=== PATIENT | male | born 1945 | race Caucasian/White ===

== ENCOUNTER 2017-11-25 20:59 | Inpatient (IN) | payer MEDICARE, BC ==
[~2017-11-25] VITALS: Ht 167.6 cm; Wt 98.9 kg
--- NOTE | 2017-11-25 21:50 | NUR ---
MD VENTURA AT BEDSIDE FOR MSE
[2017-11-25] MEDS ORDERED: IOHEXOL 350 100 ML INFUS..BTL ONE (22:16)
[2017-11-25 22:29] LABS: BASOPHILS # (AUTO) 0.1 K/uL (0.0-8.0); BASOPHILS % (AUTO) 0.6 % (0.0-2.0); EOSINOPHILS # (AUTO) 0.2 K/uL (0.0-0.7); EOSINOPHILS % (AUTO) 1.8 % (0.0-7.0); HEMOGLOBIN 11.6 g/dL (12.5-16.3); LYMPHOCYTES % (AUTO) 24.4 % (20.5-51.5); MEAN CORPUSCULAR HEMOGLOBIN 20.2 uug (23.8-33.4); MEAN CORPUSCULAR HGB CONC 31 g/dL (32.5-36.3); MEAN CORPUSCULAR VOLUME 64.5 fL (73.0-96.2); MONOCYTES % (AUTO) 8.4 % (0.0-11.0); NEUTROPHILS % (AUTO) 64.8 % (38.5-71.5); PLATELET COUNT (AUTO) 150 K/uL (152-348); RED BLOOD CELL COUNT(AUTO) 5.73 MIL/uL (4.06-5.63); WHITE BLOOD COUNT (AUTO) 12.3 K/uL (3.6-10.2)
--- NOTE | 2017-11-25 22:35 | NUR ---
PT IN ROUTE TO CT IN [facility] WITH TRANSPORTER
[2017-11-25 22:46] LABS: CARBON DIOXIDE 28 mmol/L (21-32); CHLORIDE 103 mmol/L (98-107); CREATININE 1.1 mg/dL (0.6-1.3); GLUCOSE 94 mg/dL (74-106); POTASSIUM 4.5 mmol/L (3.5-5.1); UREA NITROGEN, BLOOD 13 mg/dL (7-18)
[2017-11-25 22:53] LABS: ALANINE AMINOTRANSFERASE 21 U/L (16-63); ALKALINE PHOSPHATASE 55 U/L (50-136); ASPARTATE AMINOTRANSFERASE 11 U/L (15-37); BILIRUBIN,TOTAL 0.8 mg/dL (0.2-1.0); CREATINE KINASE, TOTAL 66 U/L (39-308); LIPASE 152 U/L (73-393); TOTAL PROTEIN, SERUM 7.3 g/dL (6.4-8.2)
--- NOTE | 2017-11-25 23:12 | NUR ---
PT RETURNS FROM CT IN [facility] WITH TRANSPORTER
[2017-11-25 23:20] LABS: EOSINOPHILS % (MANUAL) 1 % (0-8); LYMPHOCYTES % (MANUAL) 17 % (20-40); METAMYELOCYTES % 5 % (0-1); MONOCYTES % (MANUAL) 3 % (2-10); MYELOCYTES % 2 % (0-0); NEUTROPHILS % (MANUAL) 66 % (42-75)
[2017-11-25 23:42] LABS: *BILIRUBIN,URIN NEGATIVE (NEGATIVE); *BLOOD, URINE NEGATIVE (NEGATIVE); *CLARITY,URINE CLEAR (CLEAR); *COLOR,URINE YELLOW (YELLOW); *KETONES,URINE NEGATIVE (NEGATIVE); *PROTEIN,URINE NEGATIVE (NEGATIVE); *UROBILINOGEN,URINE 0.2 E.U./dl (NORMAL); LEUKOCYTE ESTERASE ,URINE NEGATIVE (NEGATIVE); NITRITE, URINE NEGATIVE (NEGATIVE); PH,URINE 6.5 (5.0-8.0); UGLUCOSE TRACE (NEGATIVE)
[2017-11-25] MEDS ORDERED: METRONIDAZOLE 500 MG/NS 100 ML PIGGYBACK IV ONE (23:44)
[2017-11-25] MEDS ORDERED: CIPROFLOXACIN IV 400 MG in PREMIXED 1 EACH IV SCH (23:44)
[2017-11-25] MEDS ORDERED: IV NS 1000 ML 1,000 ML IV ONE (23:45)
[2017-11-25 23:54] LABS: BACTERIA,URINE NONE SEEN /HPF (NONE SEEN); RBC,URINE 0-3 /HPF (0-3); SQUAMOUS EPITHELIAL CELL,UR FEW /HPF (NONE SEEN); WBC,URINE NONE SEEN /HPF (0-3)
[2017-11-26] MEDS ORDERED: METRONIDAZOLE 500 MG/NS 100ML 100 ML IV ONE ×2 (00:02→06:00)
--- NOTE | 2017-11-26 00:05 | NUR ---
PT ABLE TO AMBULATE FROM BED TO RESTROOM AND BACK WITH STEADY GAIT W/O ASSISTANCE.
[2017-11-26] MEDS ORDERED: ONDANSETRON 4 MG/2 ML VIAL IV PRN (00:30)
[2017-11-26] MEDS ORDERED: MAGNESIUM HYDROXIDE 30 ML LIQUID UDC PO PRN (00:30)
[2017-11-26] MEDS ORDERED: ACETAMINOPHEN 325 MG TABLET PO PRN (00:30)
[2017-11-26] MEDS ORDERED: Z GUARD REMEDY PASTE 57 GM TUBE TOP PRN (00:30)
[2017-11-26] MEDS ORDERED: MORPHINE SULFATE 2 MG/1 ML DISP.SYRIN IV PRN (00:30)
--- NOTE | 2017-11-26 01:05 | NUR ---
REPORT GIVEN TO TELEMETRY NURSE, MEGHNA VARMA
--- NOTE | 2017-11-26 01:55 | NUR ---
ADMITTED A 72 YEARS OLD MALE WITH DIAGNOSIS OF DIVERTICULITIS. AAOX4. DENIES ANY PAIN OR SOB AT THIS TIME. NSR ON TELE AT 78/MIN. IV SITE ON RIGHT HAND INTACT AND PATENT. CIPRO IV ABX RUNNING AT THIS TIME. ROUTINE ADMISSION CARE DONE. PLAN OF CARE INITIATED. SAFETY MEASURE INITIATED AND CALL HU WITHIN REACH.
[2017-11-26 02:00] VITALS: BP 110/67
--- NOTE | 2017-11-26 02:00 | NUR ---
Pt. admitted to TELEMETRY, under care of Dr. MONTERO Belongs List REFUSED BY PT
[2017-11-26] MEDS: IV D5 1/2 NS 1000 ML 1,000 ML IV PRN (02:38)
[2017-11-26] MEDS: HYDROCODONE/APAP 5-325MG TABLET PO PRN ×3 (04:43→15:24)
[2017-11-26] MEDS: METRONIDAZOLE 500 MG/NS 100ML 500 MG in PREMIXED 1 EACH IV SCH ×3 (06:04→21:20)
--- NOTE | 2017-11-26 06:13 | NUR ---
AAOX4. IN NO ACUTE DISTRESS. NSR ON TELE WITH PERIODS OF ATRIAL ECTOPY. IV SITE ON RIGHT HAND INTACT AND PATENT. NO ADVERSE REACTION NOTED FROM IV ABX. SAFETY MEASURE MAINTAINED AND CALL HU WITHIN REACH.
[2017-11-26] MEDS ORDERED: MORPHINE SULFATE 4 MG/1 ML DISP.SYRIN IV PRN (07:45)
[2017-11-26] MEDS: LACTOBACILLUS RHAMNOSUS GG 1 EACH CAPSULE PO SCH ×2 (10:26→21:19)
[2017-11-26 11:46] VITALS: BP 116/71
[2017-11-26] MEDS ORDERED: CIPROFLOXACIN IV 400 MG in PREMIXED 1 EACH IV SCH ×4 (12:00)
[2017-11-26 12:02] LABS: BASOPHILS % (AUTO) 0.4 % (0.0-2.0); EOSINOPHILS # (AUTO) 0.2 K/uL (0.0-0.7); EOSINOPHILS % (AUTO) 1.8 % (0.0-7.0); HEMATOCRIT 36.6 % (36.7-47.1); HEMOGLOBIN 11.5 g/dL (12.5-16.3); LYMPHOCYTES # (AUTO) 2.6 K/uL (20.0-40.0); MEAN CORPUSCULAR HEMOGLOBIN 20.4 uug (23.8-33.4); MEAN CORPUSCULAR HGB CONC 32 g/dL (32.5-36.3); MEAN CORPUSCULAR VOLUME 64.7 fL (73.0-96.2); MONOCYTES # (AUTO) 0.9 K/uL (2.0-10.0); MONOCYTES % (AUTO) 8.6 % (0.0-11.0); NEUTROPHILS % (AUTO) 65.2 % (38.5-71.5); PLATELET COUNT (AUTO) 142 K/uL (152-348); RED BLOOD CELL COUNT(AUTO) 5.66 MIL/uL (4.06-5.63); WHITE BLOOD COUNT (AUTO) 10.7 K/uL (3.6-10.2)
[2017-11-26 12:22] LABS: CARBON DIOXIDE 27 mmol/L (21-32); CHLORIDE 106 mmol/L (98-107); CREATININE 1.1 mg/dL (0.6-1.3); GLUCOSE 86 mg/dL (74-106); POTASSIUM 4.6 mmol/L (3.5-5.1); UREA NITROGEN, BLOOD 9 mg/dL (7-18)
[2017-11-26] MEDS: LEVOFLOXACIN 500 MG/D5W 500 MG in PREMIXED 1 EACH IV SCH (12:25)
[2017-11-26 13:50] LABS: BAND % (MANUAL) 3 % (0-10); EOSINOPHILS % (MANUAL) 2 % (0-8); LYMPHOCYTES % (MANUAL) 26 % (20-40); METAMYELOCYTES % 3 % (0-1); MONOCYTES % (MANUAL) 7 % (2-10); NEUTROPHILS % (MANUAL) 59 % (42-75)
[2017-11-26 15:33] VITALS: BP 130/76
--- NOTE | 2017-11-26 19:20 | NUR ---
RECEIVED SHIFT REPORT FROM MEGHNA VARMA. PT IN BED, NO COMPLAINTS AT THIS TIME. PT REFUSES TELE MONITORING.
[2017-11-26 20:00] VITALS: BP 114/66
[2017-11-27 04:00] VITALS: BP 124/73
[2017-11-27] MEDS: HYDROCODONE/APAP 5-325MG TABLET PO PRN (04:10)
[2017-11-27] MEDS: METRONIDAZOLE 500 MG/NS 100ML 500 MG in PREMIXED 1 EACH IV SCH ×3 (05:30→21:07)
--- NOTE | 2017-11-27 05:50 | NUR ---
Patient slept t/o shift. Patient continues to refuse TELE monitor despite detail explanation on how important it is to have it on. Patient remains A/O x 4. No C/O pain or SOB at the moment. IV fluids infusing on the right hand. Vital signs stable. Afebrile. Room is left clutter free. Bed in low and locked position. All meds given as ordered. All needs met.
[2017-11-27 06:32] LABS: IRON, SERUM 27 ug/dL (50-175)
[2017-11-27 06:45] LABS: CARBON DIOXIDE 26 mmol/L (21-32); CHLORIDE 105 mmol/L (98-107); CREATININE 1.1 mg/dL (0.6-1.3); FERRITIN 181 ng/mL (26-388); GLUCOSE 116 mg/dL (74-106); MAGNESIUM 1.7 mg/dL (1.8-2.4); PHOSPHOROUS 3.1 mg/dL (2.5-4.9); POTASSIUM 4.2 mmol/L (3.5-5.1); UREA NITROGEN, BLOOD 8 mg/dL (7-18)
--- NOTE | 2017-11-27 06:50 | NUR ---
PT REQUESTS TO BE PUT BACK ON TELE MONITORING. PT PLACED ON TELE MONITOR. NSR ON TELE.
--- NOTE | 2017-11-27 07:37 | NUR ---
patient awake/alert at this time. no s/s of distress. stable condition. receiving blood draw. complains of abdominal pain 3/10 on pain scale and tolerable without pain medication/management. ivf running at this time. ambulatory without assistance. will continue to monitor throughout shift.
[2017-11-27 07:51] LABS: BASOPHILS # (AUTO) 0.1 K/uL (0.0-8.0); BASOPHILS % (AUTO) 0.8 % (0.0-2.0); EOSINOPHILS # (AUTO) 0.2 K/uL (0.0-0.7); EOSINOPHILS % (AUTO) 1.9 % (0.0-7.0); HEMATOCRIT 35.5 % (36.7-47.1); HEMOGLOBIN 11.4 g/dL (12.5-16.3); LYMPHOCYTES # (AUTO) 2.3 K/uL (20.0-40.0); LYMPHOCYTES % (AUTO) 22.9 % (20.5-51.5); MEAN CORPUSCULAR HEMOGLOBIN 20.5 uug (23.8-33.4); MEAN CORPUSCULAR HGB CONC 32 g/dL (32.5-36.3); MEAN CORPUSCULAR VOLUME 63.8 fL (73.0-96.2); MONOCYTES # (AUTO) 0.7 K/uL (2.0-10.0); MONOCYTES % (AUTO) 7.2 % (0.0-11.0); NEUTROPHILS # (AUTO) 6.6 K/uL (1.8-8.9); NEUTROPHILS % (AUTO) 67.2 % (38.5-71.5); PLATELET COUNT (AUTO) 134 K/uL (152-348); RED BLOOD CELL COUNT(AUTO) 5.56 MIL/uL (4.06-5.63); WHITE BLOOD COUNT (AUTO) 9.9 K/uL (3.6-10.2)
[2017-11-27 08:07] LABS: EOSINOPHILS % (MANUAL) 2 % (0-8); LYMPHOCYTES % (MANUAL) 22 % (20-40); MONOCYTES % (MANUAL) 8 % (2-10)
[2017-11-27 08:12] LABS: NEUTROPHILS % (MANUAL) 68 % (42-75)
[2017-11-27 08:45] VITALS: BP 108/62
[2017-11-27] MEDS: LACTOBACILLUS RHAMNOSUS GG 1 EACH CAPSULE PO SCH ×2 (08:54→21:07)
[2017-11-27] MEDS ORDERED: MAGNESIUM OXIDE 400 MG TABLET PO ONE (10:30)
--- NOTE | 2017-11-27 11:30 | NUR ---
ORDERED TO HAVE DIET ADVANCED TO SOFT DIET.
[2017-11-27 11:50] VITALS: BP 131/74
[2017-11-27] MEDS: LEVOFLOXACIN 500 MG/D5W 500 MG in PREMIXED 1 EACH IV SCH (12:32)
[2017-11-27] MEDS ORDERED: ROSU10TA PO (14:33)
[2017-11-27] MEDS ORDERED: TAMS0.4C34 PO (14:33)
[2017-11-27] MEDS ORDERED: GLIP5TAB26 PO (14:33)
[2017-11-27] MEDS ORDERED: LOSA50TA21 PO (14:33)
--- NOTE | 2017-11-27 15:00 | NUR ---
home medications brought in by family. Medications sorted through. Patient's primary pharmacy called to confirm medications patient is currently on. Confirmed medications by patient's primary pharmacy are entered into medication reconciliation. all home medications brought down to pharmacy. MD notified of medications entered into medication reconciliation.
--- NOTE | 2017-11-27 15:27 | NUR ---
no complaints of abdominal pain thus far through shift. no complaints of pain following advancement of diet to soft diet. scheduled antibiotics administered. vital signs stable.
[2017-11-27] MEDS: IV D5 1/2 NS 1000 ML 1,000 ML IV PRN (15:55)
[2017-11-27 16:05] VITALS: BP 119/60
--- NOTE | 2017-11-27 18:27 | NUR ---
awake/alert at this time. no s/s of distress. sitting in chair at bedside with daughter also at bedside. vital signs stable. telemetry discontinued by fish bait picker. no complaints of abdominal pain verbalized by patient throughout shift. call light within reach. comfort/safety provided.
--- NOTE | 2017-11-27 19:30 | NUR ---
Patient alert awake oriented in no acute distress. Sitting up in chair. No complaints of abdominal pain at this time. Denies shortness of breathe and discomfort. Maintaining IV fluids D51/2ns at 75cc/hr. IV site intact. Able to make needs know. Aware of plan of care. Reminded patient to ask for assistance when needed. Call light within reach. Will continue to monitor.
[2017-11-27 20:00] VITALS: BP 106/56
[2017-11-27] MEDS ORDERED: METFORMIN XR 500 MG TAB.SR.24H PO SCH (22:00)
[2017-11-27] MEDS: TAMSULOSIN HCL 0.4 MG CAP.SR.24H PO SCH (22:01)
[2017-11-27] MEDS: ATORVASTATIN 40 MG TABLET PO SCH (22:01)
--- NOTE | 2017-11-27 23:34 | NUR ---
Patient blood glucose level checked and noted to be 136mg/dl. Patient metformin held for the night. MD aware. Auger Press Operator aware. Patient informed of why medication was held and verbalized understanding. Will continue to monitor and endorse.
--- NOTE | 2017-11-28 01:00 | NUR ---
Patient resting in bed. No s/s of hyper or hypoglycemia. No adverse reaction noted to antibiotic therapy. IV site intact patent. No s/s of infiltration. Continue IV hydration. Will continue to monitor.
--- NOTE | 2017-11-28 03:27 | NUR ---
Patient continues to remain in bed. No s/s of distress. Will continue to monitor.
[2017-11-28 03:48] VITALS: BP 124/66
[2017-11-28] MEDS: METRONIDAZOLE 500 MG/NS 100ML 500 MG in PREMIXED 1 EACH IV SCH ×3 (05:53→21:37)
[2017-11-28] MEDS: IV D5 1/2 NS 1000 ML 1,000 ML IV PRN ×2 (05:57→21:37)
--- NOTE | 2017-11-28 06:18 | NUR ---
Patient awake, labs drawn. Patient requested to have blood glucose level checked. BGL 137mg/dl. Patient in no apparent distress. Patient used restroom and safely ambulated back to bed. Side rails up. Call light in reach. Will continue to follow up.
[2017-11-28 06:41] LABS: CARBON DIOXIDE 24 mmol/L (21-32); CHLORIDE 106 mmol/L (98-107); GLUCOSE 137 mg/dL (74-106); MAGNESIUM 1.8 mg/dL (1.8-2.4); PHOSPHOROUS 3.2 mg/dL (2.5-4.9); POTASSIUM 3.7 mmol/L (3.5-5.1); UREA NITROGEN, BLOOD 9 mg/dL (7-18)
[2017-11-28 06:52] LABS: BASOPHILS % (AUTO) 0.5 % (0.0-2.0); EOSINOPHILS # (AUTO) 0.2 K/uL (0.0-0.7); EOSINOPHILS % (AUTO) 1.9 % (0.0-7.0); HEMATOCRIT 35.8 % (36.7-47.1); HEMOGLOBIN 11.4 g/dL (12.5-16.3); LYMPHOCYTES # (AUTO) 2.1 K/uL (20.0-40.0); LYMPHOCYTES % (AUTO) 22.8 % (20.5-51.5); MEAN CORPUSCULAR HEMOGLOBIN 20.5 uug (23.8-33.4); MEAN CORPUSCULAR HGB CONC 32 g/dL (32.5-36.3); MEAN CORPUSCULAR VOLUME 64.3 fL (73.0-96.2); MONOCYTES # (AUTO) 0.7 K/uL (2.0-10.0); MONOCYTES % (AUTO) 7.4 % (0.0-11.0); NEUTROPHILS # (AUTO) 6.1 K/uL (1.8-8.9); NEUTROPHILS % (AUTO) 67.4 % (38.5-71.5); PLATELET COUNT (AUTO) 116 K/uL (152-348); RED BLOOD CELL COUNT(AUTO) 5.57 MIL/uL (4.06-5.63); WHITE BLOOD COUNT (AUTO) 9.1 K/uL (3.6-10.2)
--- NOTE | 2017-11-28 07:34 | NUR ---
AWAKE ALERT AND ORIENTED X3 NO SS OF ACUTE PAIN OR DISTRESS NO ACTIVE HEMOPTYSIS. CONTINUE CLOSE MONITORING, LABS ORDERED. Addendum: 11/28/17 at 0739 by LAINE HAYES RN ERROR
--- NOTE | 2017-11-28 07:40 | NUR ---
AWAKE ALERT AND ORIENTED X3 NO ACUTE ABDOMINAL PAIN, NO N/V
[2017-11-28] MEDS: LACTOBACILLUS RHAMNOSUS GG 1 EACH CAPSULE PO SCH ×2 (08:21→20:14)
[2017-11-28] MEDS: TAMSULOSIN HCL 0.4 MG CAP.SR.24H PO SCH (08:21)
[2017-11-28] MEDS: glipiZIDE XL 5 MG TABCR PO SCH (08:22)
[2017-11-28] MEDS: LOSARTAN POTASSIUM 50 MG TABLET PO SCH (08:22)
[2017-11-28 09:20] LABS: BAND % (MANUAL) 1 % (0-10); BASOPHILS % (MANUAL) 2 % (0-2); EOSINOPHILS % (MANUAL) 1 % (0-8); LYMPHOCYTES % (MANUAL) 28 % (20-40); MONOCYTES % (MANUAL) 7 % (2-10); NEUTROPHILS % (MANUAL) 61 % (42-75)
[2017-11-28] MEDS ORDERED: INSULIN REGULAR, HUMAN 300 UNIT/3 ML VIAL SQ PRN (10:15)
[2017-11-28] MEDS ORDERED: DEXTROSE 50% 50 ML DISP.SYRIN IV PRN (10:15)
[2017-11-28 10:32] LABS: THYROID STIMULATING HORMONE 3.126 mIU/mL (0.358-3.740)
[2017-11-28 11:40] VITALS: BP 125/76
--- NOTE | 2017-11-28 12:00 | NUR ---
NO C/O PAIN OR SOB, AFEBRILE.
[2017-11-28] MEDS: LEVOFLOXACIN 500 MG/D5W 500 MG in PREMIXED 1 EACH IV SCH (12:13)
[2017-11-28] MEDS: BLOOD SUGAR DIAGNOSTIC 1 EACH STRIP VI SCH ×3 (12:14→21:37)
[2017-11-28] MEDS: INVOKANA 300 MG PO SCH (12:14)
[2017-11-28] MEDS: METFORMIN XR 500 MG TAB.SR.24H PO SCH ×2 (12:14→16:42)
[2017-11-28] MEDS ORDERED: METF-495 PO (14:33)
[2017-11-28] MEDS ORDERED: CANA300T PO (14:33)
[2017-11-28] MEDS ORDERED: LIRA0.6P2 SUBCUT (14:33)
[2017-11-28 16:00] VITALS: BP 109/58
--- NOTE | 2017-11-28 17:52 | NUR ---
CONTINUE IV ANTIBIOTIC ORDERED. DENIES PAIN, AMBULATES AROUND THE HALLWAY NO DIZZINESS NOTED. AFEBRILE. PLAN DC IN AM PER HOSPITALIST
--- NOTE | 2017-11-28 19:10 | NUR ---
RECEIVED PT AWAKE, ALERT, ORIENTEDX4. PT SHOWS NO SIGNS OF DISTRESS. PT IV INTACT AND PATENT. CALL LIGHT WITHIN REACH, BED ALARM ON AND IN LOW POSITION, SIDE RAILS UPX2. PT NO COMPLAINT OF PAIN. WILL CONTINUE TO MONITOR.
[2017-11-28 20:00] VITALS: BP 111/62
[2017-11-28] MEDS: ATORVASTATIN 40 MG TABLET PO SCH (20:14)
--- NOTE | 2017-11-28 20:59 | NUR ---
PT BLOOD SUGAR WAS 148. PT REFUSED TO HAVE INSULIN . HE SAID HE IS JUST TAKING METFORMIN. PT SHOWS NO SIGNS IF DISTRESS.. PT WALKED THE HALLWAY FOR 4 ROUNDS. SAFETY PROVIDED. WILL CONTINUE TO MONITOR.
[2017-11-29 04:02] VITALS: BP 108/70
[2017-11-29] MEDS: METRONIDAZOLE 500 MG/NS 100ML 500 MG in PREMIXED 1 EACH IV SCH (06:30)
[2017-11-29] MEDS: BLOOD SUGAR DIAGNOSTIC 1 EACH STRIP VI SCH (06:30)
[2017-11-29 06:39] LABS: ALANINE AMINOTRANSFERASE 17 U/L (16-63); ALKALINE PHOSPHATASE 51 U/L (50-136); ASPARTATE AMINOTRANSFERASE 12 U/L (15-37); BILIRUBIN,TOTAL 0.6 mg/dL (0.2-1.0); CARBON DIOXIDE 24 mmol/L (21-32); CHLORIDE 105 mmol/L (98-107); CREATININE 1.1 mg/dL (0.6-1.3); GLUCOSE 119 mg/dL (74-106); MAGNESIUM 1.8 mg/dL (1.8-2.4); PHOSPHOROUS 4.1 mg/dL (2.5-4.9); TOTAL PROTEIN, SERUM 6.8 g/dL (6.4-8.2); UREA NITROGEN, BLOOD 10 mg/dL (7-18)
[2017-11-29 06:41] LABS: BASOPHILS % (AUTO) 0.4 % (0.0-2.0); EOSINOPHILS # (AUTO) 0.3 K/uL (0.0-0.7); HEMATOCRIT 37.1 % (36.7-47.1); HEMOGLOBIN 11.9 g/dL (12.5-16.3); LYMPHOCYTES # (AUTO) 2.9 K/uL (20.0-40.0); LYMPHOCYTES % (AUTO) 27.3 % (20.5-51.5); MEAN CORPUSCULAR HEMOGLOBIN 20.4 uug (23.8-33.4); MEAN CORPUSCULAR HGB CONC 32 g/dL (32.5-36.3); MEAN CORPUSCULAR VOLUME 63.7 fL (73.0-96.2); MONOCYTES # (AUTO) 0.7 K/uL (2.0-10.0); MONOCYTES % (AUTO) 6.7 % (0.0-11.0); NEUTROPHILS # (AUTO) 6.7 K/uL (1.8-8.9); NEUTROPHILS % (AUTO) 62.6 % (38.5-71.5); PLATELET COUNT (AUTO) 142 K/uL (152-348); RED BLOOD CELL COUNT(AUTO) 5.82 MIL/uL (4.06-5.63); WHITE BLOOD COUNT (AUTO) 10.7 K/uL (3.6-10.2)
--- NOTE | 2017-11-29 06:41 | NUR ---
PT SLEPT THROUGHOUT THE SHIFT. PT SHOWS NO SIGNS OF DISTRESS.PRESCRIBED MEDICATION GIVEN AND PT TOLERATED IT WELL. CALL LIGHT WITHIN REACH, BED ALARM ON AND IN LOW POSITION. LATEST BLOOD SUGAR LEVEL WAS 119. SAFETY AND COMFORT PROVIDED. ALL NEEDS ARE MET. WILL ENDORSE TO DAYSHIFT NURSE.
[2017-11-29 06:48] LABS: BAND % (MANUAL) 2 % (0-10); EOSINOPHILS % (MANUAL) 1 % (0-8); LYMPHOCYTES % (MANUAL) 22 % (20-40); MONOCYTES % (MANUAL) 10 % (2-10); NEUTROPHILS % (MANUAL) 65 % (42-75)
--- NOTE | 2017-11-29 07:30 | NUR ---
received sitting up in chair, denies of abdominal pain, no nausea, no vomiting, states wants to go home today, informed will let MD know on rounds, call light within reach
[2017-11-29] MEDS: glipiZIDE XL 5 MG TABCR PO SCH (08:40)
[2017-11-29] MEDS: METFORMIN XR 500 MG TAB.SR.24H PO SCH (08:40)
[2017-11-29] MEDS: TAMSULOSIN HCL 0.4 MG CAP.SR.24H PO SCH (08:40)
[2017-11-29] MEDS: INVOKANA 300 MG PO SCH (08:40)
[2017-11-29] MEDS: LACTOBACILLUS RHAMNOSUS GG 1 EACH CAPSULE PO SCH (08:40)
[2017-11-29 08:42] VITALS: BP 122/55
[2017-11-29] MEDS: LOSARTAN POTASSIUM 50 MG TABLET PO SCH (08:42)
--- NOTE | 2017-11-29 09:10 | NUR ---
report given and endorsed care to Archana COFFMAN
[2017-11-29] MEDS ORDERED: LACTOBACILLUS RHAMNOSUS GG 1 EACH CAPSULE PO SCH (11:00)
[2017-11-29] MEDS ORDERED: LACT1CAP57 PO (11:09)
[2017-11-29] MEDS ORDERED: METR500T4 PO (11:09)
[2017-11-29] MEDS ORDERED: HYDR-3326 PO (11:09)
[2017-11-29] MEDS ORDERED: LEVO500T2 PO (11:09)
[2017-11-29] MEDS ORDERED: LEVOFLOXACIN 500 MG TABLET PO SCH (12:00)
--- NOTE | 2017-11-29 12:30 | NUR ---
HOME INSTRUCTIONS REVIEWED WITH PT. DISPATCH CLERK IN TO REVIEW HOME DIET INSTRUCTIONS [DIVERTICULITIS] WITH WRITTEN AND VERBAL INSTRUCTIONS. PHARMACY IN TO RETURN HOME MEDS AND REVIEW ALL NEW MEDS AND RX. IV D/C'D. PT. DISCHARGED TO SELF--ESCORTED TO CAR BY RN.
[2017-11-29] MEDS ORDERED: METRONIDAZOLE 500 MG TABLET PO SCH (14:00)
== END 2017-11-29 12:30 | disposition home or self-care (01) | DRG 872 ==
LOC: ER 21:04 → EDBD 11-26 01:13 → TELE 11-26 01:13 → MED 11-27 16:40
PROVIDERS: ADMIT Internal Medicine; ATTEND Nurse Practitioner Acute Care
DX: A41.9 Sepsis, unspecified organism (principal); K57.32 Diverticulitis of large intestine without perforation or abscess without bleeding; J98.11 Atelectasis; Z90.49 Acquired absence of other specified parts of digestive tract; D50.9 Iron deficiency anemia, unspecified; E78.5 Hyperlipidemia, unspecified; K42.9 Umbilical hernia without obstruction or gangrene; K40.20 Bilateral inguinal hernia, without obstruction or gangrene, not specified as recurrent; K44.9 Diaphragmatic hernia without obstruction or gangrene; D69.6 Thrombocytopenia, unspecified; E66.9 Obesity, unspecified; Z68.35 Body mass index [BMI] 35.0-35.9, adult; E11.9 Type 2 diabetes mellitus without complications; N40.0 Benign prostatic hyperplasia without lower urinary tract symptoms; E78.00 Pure hypercholesterolemia, unspecified; E83.42 Hypomagnesemia; I51.7 Cardiomegaly
CPT/HCPCS: 36415; 70030-TC; 71045; 83550; 83605; 83690; 83735; 84100; 84443; 85025; 85610; 87040; 93005; A4663; J0744; J1815; J1956; J3490; J7030; J8499; Q9967

== ENCOUNTER 2017-12-08 14:04 | Emergency (ER) | payer MEDICARE, BC ==
[~2017-12-08 14:04] MED LIST: GLIP5TAB26 PO; HYDR-3326 PO; LACT1CAP57 PO; LEVO500T2 PO; LOSA50TA21 PO; METF-495 PO; METR500T4 PO; ROSU10TA PO; TAMS0.4C34 PO
--- NOTE | 2017-12-08 14:20 | NUR ---
Pt was d/c from this facility and instructed to follow up with his pmd but came here for follow up. Pt stated he will follow up with his pmd as he misunderstood his discharge instructions. Pt has no medical complaints, states he simply came to ER because he thought that's what he was told upon d/c.
== END 2017-12-08 14:24 | disposition left against medical advice (07) ==
LOC: ER 14:04
DX: Z53.21 Procedure and treatment not carried out due to patient leaving prior to being seen by health care provider (principal)
CPT/HCPCS: A4663; J7030

== ENCOUNTER 2021-04-02 15:24 | Inpatient (IN) | payer MEDICARE, BC ==
[2021-04-01 22:00] VITALS: BP 134/81
[~2021-04-02] VITALS: Ht 160 cm; Wt 90.3 kg
[~2021-04-02 15:24] MED LIST changes: -LOSA50TA21 PO; +LOSA50TA39 PO; +METR-147 PO; -METR500T4 PO; -ROSU10TA PO; +ROSU10TA2 PO
[2021-04-02] MEDS ORDERED: CLON1PAT TD (22:34)
[2021-04-02] MEDS ORDERED: RIVA20TA PO (22:34)
[2021-04-02] MEDS ORDERED: OMEP40CA21 PO (22:34)
[2021-04-02] MEDS ORDERED: EMPA25TA PO (22:34)
[2021-04-02] MEDS ORDERED: ASCO500T10 PO (22:34)
[2021-04-02] MEDS ORDERED: FERR240T5 PO (22:34)
[2021-04-02] MEDS ORDERED: ACET-73 PO (22:34)
[2021-04-02] MEDS ORDERED: INSU100I14 SUBCUT (22:34)
[2021-04-02] MEDS ORDERED: MAGN400T8 PO (22:34)
[2021-04-02] MEDS ORDERED: FINA5TAB11 PO (22:34)
[2021-04-02] MEDS ORDERED: PREG50CA PO (22:34)
[2021-04-02] MEDS ORDERED: QUET25TA PO (22:34)
[2021-04-02] MEDS ORDERED: CHOL100034 (22:34)
[2021-04-02] MEDS ORDERED: TADA5TAB2 PO (22:34)
[2021-04-02] MEDS ORDERED: FURO20TA4 PO (22:34)
[2021-04-02] MEDS ORDERED: ALFU10TA10 PO (22:34)
--- NOTE | 2021-04-02 23:31 | NUR ---
Pt arrived in the unit for rehab admission at 2130. 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 AAO x3-4. VS WNL. No acute distress noted. Denies pain/ discomfort. Daughter was at bedside. Pertinent assessment done. Skin intact. Oriented pt to the room and equipment. Assisted to the bathroom, ambulate with walker and assist. Notified Dr. Sharif of admission and pt's request to be DNR. Pt's daughter, Robert, will bring a copy of DNR paper tomorrow. Notified Dr. Bailon of admission and for med recon. okayed to continue all meds for now and other needs tomorrow morning. No belongings with pt. Safety measures maintained. Call light within reach. Will continue to monitor.
[2021-04-03 04:00] VITALS: BP 113/64
--- NOTE | 2021-04-03 06:16 | NUR ---
Pt slept intermittently at night. Periods of confusion noted but redirectable. All needs attended thoroughly. Will endorse accordingly.
[2021-04-03] MEDS ORDERED: ACETAMINOPHEN ES 500 MG TABLET- SA PATIENTS-PAIN ONLY PO PRN (07:15)
[2021-04-03] MEDS ORDERED: INSULIN LISPRO XX SCH (07:15)
[2021-04-03 08:00] VITALS: BP 130/82
[2021-04-03] MEDS: ASCORBIC ACID 500 MG TABLET PO SCH (08:09)
[2021-04-03] MEDS: FUROSEMIDE 20 MG TABLET PO SCH ×2 (08:09→17:05)
[2021-04-03] MEDS: CHOLECALCIFEROL 1,000 UNIT TABLET PO SCH (08:09)
[2021-04-03] MEDS: PANTOPRAZOLE SODIUM 40 MG TABLET.DR PO SCH (08:09)
[2021-04-03] MEDS: PREGABALIN 50 MG CAPSULE PO SCH ×3 (08:10→17:05)
[2021-04-03] MEDS: FINASTERIDE 5 MG TABLET PO SCH (08:10)
[2021-04-03] MEDS ORDERED: FERROUS GLUCONATE 240 MG PO SCH (09:00)
[2021-04-03] MEDS ORDERED: Empagliflozin (Jardiance) 25 MG) PO SCH (09:00)
[2021-04-03] MEDS ORDERED: Tadalafil (Cialis) 5 MG) PO SCH (09:00)
[2021-04-03] MEDS ORDERED: CHOLECALCIFEROL 400 UNITS TABLET PO SCH (09:00)
[2021-04-03] MEDS: ALFUZOSIN HCL 10 MG TAB.SR.24H PO SCH (10:25)
[2021-04-03] MEDS: FERROUS GLUCONATE 324 MG TABLET PO SCH (10:25)
[2021-04-03] MEDS: MAGNESIUM OXIDE 400 MG TABLET PO SCH (10:27)
[2021-04-03] MEDS: CLONIDINE-TTS 1 PATCH TD SCH (10:33)
[2021-04-03 12:00] VITALS: BP 106/75
--- NOTE | 2021-04-03 12:24 | NUR ---
Patient is alert and oriented x 3 with periods of forgetfulness, daughter came and informed her that she needs to bring home meds such as Jardiance and Cialis per pharmacy. PT eval rendered by rehab. Johan provided at patient's room. Per Dr. Obrien he will be here to see the patient. Assisted patient to the bathroom as needed. Assisted patient back to bed and bed alarm is functioning well. All needs met promptly. Will continue to monitor for patient's safety.
[2021-04-03 16:00] VITALS: BP 148/48
[2021-04-03] MEDS ORDERED: DEXTROSE 50% 50 ML DISP.SYRIN IV PRN (16:45)
[2021-04-03] MEDS: BLOOD SUGAR DIAGNOSTIC 1 EACH STRIP VI SCH ×2 (16:57→20:09)
[2021-04-03] MEDS: RIVAROXABAN 10 MG TABLET PO SCH (17:05)
[2021-04-03] MEDS: INSULIN REGULAR, HUMAN 300 UNIT/3 ML VIAL SQ PRN ×2 (17:11→20:11)
[2021-04-03] MEDS: QUETIAPINE FUMARATE 25 MG TABLET PO PRN (20:11)
[2021-04-03 20:12] VITALS: BP 99/68
--- NOTE | 2021-04-03 20:41 | NUR ---
Received pt resting in bed. AAO x3, with periods of forgetfulness. No acute distress noted. Denies pain/ discomfort. Assisted pt walking around the hallway using walker and to the bathroom. Accucheck 177, insulin given as per sliding scale. Seroquel PRN also given. Safety measures maintained. Call light and personal items within reach. Will continue to monitor.
--- NOTE | 2021-04-04 05:13 | NUR ---
Pt slept intermittently. Periods of being hostile to hospital staff. Tries to get OOB without assist, unstable, falls asleep while walking or sitting in the bathroom. Unredirectable. Pt very stubborn. Threatened to hit staff and pointing finger. Pt reoriented to room. Pt is alert and oriented but continues to make threats with staff. Security was called. Pt appeared to calm down. Assisted to the bathroom. Will continue to monitor.
--- NOTE | 2021-04-04 05:34 | NUR ---
Pt continues to be stubborn. Noted pt falling asleep while sitting on the edge of the bed but pt refused to lay down. Teaching provided regarding safety and high risk for fall. Pt keeps saying "Do not order me" in a threatening manner. HAND SOLE SEWER with pt supervising him to prevent fall at this time. Pt refused blood draw from lab. Risks and benefits explained, pt refused.
[2021-04-04] MEDS: BLOOD SUGAR DIAGNOSTIC 1 EACH STRIP VI SCH ×4 (06:37→20:53)
[2021-04-04] MEDS: PANTOPRAZOLE SODIUM 40 MG TABLET.DR PO SCH (06:37)
[2021-04-04 08:00] VITALS: BP 109/70
[2021-04-04] MEDS: INSULIN REGULAR, HUMAN 300 UNIT/3 ML VIAL SQ PRN ×4 (08:02→21:01)
[2021-04-04] MEDS: FERROUS GLUCONATE 324 MG TABLET PO SCH (08:04)
[2021-04-04] MEDS: CHOLECALCIFEROL 1,000 UNIT TABLET PO SCH (08:05)
[2021-04-04] MEDS: FINASTERIDE 5 MG TABLET PO SCH (08:06)
[2021-04-04] MEDS: PREGABALIN 50 MG CAPSULE PO SCH ×3 (08:06→17:21)
[2021-04-04] MEDS: ASCORBIC ACID 500 MG TABLET PO SCH (08:06)
[2021-04-04] MEDS: ALFUZOSIN HCL 10 MG TAB.SR.24H PO SCH (08:07)
[2021-04-04] MEDS: MAGNESIUM OXIDE 400 MG TABLET PO SCH (08:07)
[2021-04-04] MEDS: FUROSEMIDE 20 MG TABLET PO SCH ×2 (08:08→17:26)
--- NOTE | 2021-04-04 09:38 | NUR ---
Patient is alert and oriented x 3 with periods of forgetfulness, denies of any pain, patient is comfortable eating his breakfast, all due meds given per MD order, Bed alarm ON, call light within reach. Patient went off the unit for therapy.
[2021-04-04 10:08] LABS: MEAN CORPUSCULAR HEMOGLOBIN 20.8 uug (23.8-33.4); MEAN CORPUSCULAR VOLUME 66.3 fL (73.0-96.2); PLATELET COUNT (AUTO) 203 K/uL (152-348)
[2021-04-04 10:17] LABS: BILIRUBIN,TOTAL 0.8 mg/dL (0.2-1.0); CREATININE 1.1 mg/dL (0.6-1.3); POTASSIUM 4.1 mmol/L (3.5-5.1); TOTAL PROTEIN, SERUM 7.3 g/dL (6.4-8.2)
--- NOTE | 2021-04-04 11:00 | NUR ---
Noticed that patient is sleepy most of the time during the day. Notified Dr Sharif and stated that he will come padmini. to see the patient. Informed Dr. Shaikh that per family, they ran out of Jardiance medication for patient and that family needs to talk to the primary doctor regarding Cialis medication as well before they bring it. Dr. Shaikh ordered to DC Jardiance and Cialis for now.
--- NOTE | 2021-04-04 14:53 | NUR ---
Mentioned to doctor Neel about the use of CPAP machine, as family stated that patient is using CPAP at home and at [facility]. Awaiting for response.
[2021-04-04 16:00] VITALS: BP 112/70
[2021-04-04] MEDS: RIVAROXABAN 10 MG TABLET PO SCH (17:24)
[2021-04-04 20:09] VITALS: BP 111/64
[2021-04-04] MEDS: QUETIAPINE FUMARATE 25 MG TABLET PO PRN (20:54)
--- NOTE | 2021-04-04 21:35 | NUR ---
Patient AAO x3 with periods of forgetfulness. Denies pain/ discomfort. Assisted pt to bathroom using walker. Voided well. Medication given as ordered. Seroquel PRN also given. Re-educated about fall measures.Call light and personal items within reach.
[2021-04-05 04:09] VITALS: BP 124/70
[2021-04-05] MEDS: PANTOPRAZOLE SODIUM 40 MG TABLET.DR PO SCH (06:12)
[2021-04-05] MEDS: BLOOD SUGAR DIAGNOSTIC 1 EACH STRIP VI SCH ×4 (06:34→20:59)
[2021-04-05 07:30] VITALS: BP 104/55
[2021-04-05] MEDS: MAGNESIUM OXIDE 400 MG TABLET PO SCH (08:57)
[2021-04-05] MEDS: FERROUS GLUCONATE 324 MG TABLET PO SCH (08:58)
[2021-04-05] MEDS: FUROSEMIDE 20 MG TABLET PO SCH ×2 (08:58→17:10)
[2021-04-05] MEDS: PREGABALIN 50 MG CAPSULE PO SCH ×2 (08:58→14:02)
[2021-04-05] MEDS: CHOLECALCIFEROL 1,000 UNIT TABLET PO SCH (08:58)
[2021-04-05] MEDS: ASCORBIC ACID 500 MG TABLET PO SCH (08:58)
[2021-04-05] MEDS: FINASTERIDE 5 MG TABLET PO SCH (08:58)
[2021-04-05] MEDS: ALFUZOSIN HCL 10 MG TAB.SR.24H PO SCH (08:59)
[2021-04-05] MEDS: INSULIN REGULAR, HUMAN 300 UNIT/3 ML VIAL SQ PRN ×3 (09:59→16:14)
--- NOTE | 2021-04-05 14:48 | NUR ---
INDIVIDUALIZED PLAN OF CARE
[2021-04-05 15:17] VITALS: BP 116/65
--- NOTE | 2021-04-05 17:42 | NUR ---
Patient seen by Dr. Jackson, update given to MD. Followed up with MD regarding Xarelto which is due at 6PM and per MD, wait and see result of CT scan of head without contrast before administering Xarelto. Patient also seen by Dr. Sharif, update given to MD with no new order. Patient remains alert, oriented x 2-3, forgetful, on room air. He denies any pain or discomfort. Needs attended to promptly. Daughter Robert came to visit patient during the shift. Call light and frequently used items placed within patient's reach.
[2021-04-05] MEDS: RIVAROXABAN 10 MG TABLET PO SCH (18:59)
--- NOTE | 2021-04-05 19:10 | NUR ---
Xarelto not administered at this time awaiting result of CT scan of head without contrast. Endorsed accordingly to manager retirement nurse.
[2021-04-05 20:15] VITALS: BP 116/82
[2021-04-06] MEDS: QUETIAPINE FUMARATE 25 MG TABLET PO PRN ×2 (01:13→21:46)
[2021-04-06 04:07] VITALS: BP 100/69
[2021-04-06] MEDS: PANTOPRAZOLE SODIUM 40 MG TABLET.DR PO SCH (06:27)
[2021-04-06] MEDS: BLOOD SUGAR DIAGNOSTIC 1 EACH STRIP VI SCH ×4 (06:31→20:48)
--- NOTE | 2021-04-06 06:38 | NUR ---
Shift End Report: VS stable. Always out of bed without calling for assistance. Close supervision/monitoring rendered to avoid fall/injury. Unsteady gait, refused using FWW. Slept fairly only after administration of Seroquel ordered as needed. No complaint of pain/discomforts presented. Continue care as planned.
[2021-04-06 07:40] VITALS: BP 110/68
[2021-04-06] MEDS: ASCORBIC ACID 500 MG TABLET PO SCH (08:08)
[2021-04-06] MEDS: CHOLECALCIFEROL 1,000 UNIT TABLET PO SCH (08:08)
[2021-04-06] MEDS: FINASTERIDE 5 MG TABLET PO SCH (08:08)
[2021-04-06] MEDS: MAGNESIUM OXIDE 400 MG TABLET PO SCH (08:08)
[2021-04-06] MEDS: FUROSEMIDE 20 MG TABLET PO SCH ×2 (08:08→17:21)
[2021-04-06] MEDS: ALFUZOSIN HCL 10 MG TAB.SR.24H PO SCH (08:09)
[2021-04-06] MEDS: FERROUS GLUCONATE 324 MG TABLET PO SCH (08:09)
[2021-04-06] MEDS: INSULIN REGULAR, HUMAN 300 UNIT/3 ML VIAL SQ PRN ×4 (08:16→20:51)
[2021-04-06] MEDS ORDERED: ACETAMINOPHEN ES 500 MG TABLET PO PRN (14:00)
--- NOTE | 2021-04-06 14:56 | NUR ---
Informed Dr. Castillo regarding patient taking Jardiance at home but not in the hospital pharmacy formulary. ordered Tradjenta 5mg PO daily. Also notified Dr. Jackson the result of CT brain without contrast and per MD BAZZI to administer Xarelto.
--- NOTE | 2021-04-06 15:46 | NUR ---
Patient seen by Dr. Jackson, update given to . ordered Seroquel 12.5mg PO HS.
[2021-04-06 16:14] VITALS: BP 121/77
[2021-04-06] MEDS: RIVAROXABAN 10 MG TABLET PO SCH (17:22)
--- NOTE | 2021-04-06 18:50 | NUR ---
Patient seen by Dr. Castillo with daughter Robert at bedside, update given to MD with no new order at this time. MD also spoke to daughter.
--- NOTE | 2021-04-06 20:00 | NUR ---
AWAKE,ALERT, SPEAKS KINYARWANDA, CAN UNDERSTAND ANGOLAN, WANTED SNACKS SANDWIICH GIVEN, ACCUCHECK 153 INSULIN GIVEN PER PROTOCOL.REFUSED C PAP.
[2021-04-06 20:06] VITALS: BP 110/64
[2021-04-06] MEDS ORDERED: QUETIAPINE FUMARATE 25 MG TABLET PO SCH (21:00)
--- NOTE | 2021-04-06 22:23 | NUR ---
Patient refuses to be placed on CPAP at this time. Pt is currently on room air SpO2=98%. No resp. distress noted.
--- NOTE | 2021-04-06 23:08 | NUR ---
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
[2021-04-07 05:11] VITALS: BP 107/64
[2021-04-07] MEDS: PANTOPRAZOLE SODIUM 40 MG TABLET.DR PO SCH (06:06)
[2021-04-07] MEDS: BLOOD SUGAR DIAGNOSTIC 1 EACH STRIP VI SCH ×4 (06:28→20:42)
[2021-04-07 08:00] VITALS: BP 121/79
--- NOTE | 2021-04-07 08:40 | NUR ---
Patient is alert and oriented x 3 ,with periods of forgetfulness, able to ambulate with FWW to the BR denies of any pain, patient is comfortable up sitting on chair eating his breakfast, Bed alarm ON, call light within reach. Patient on PT /OT for therapy.
[2021-04-07] MEDS: FUROSEMIDE 20 MG TABLET PO SCH ×2 (08:58→16:50)
[2021-04-07] MEDS: LINAGLIPTIN 5 MG TABLET PO SCH (08:58)
[2021-04-07] MEDS: FERROUS GLUCONATE 324 MG TABLET PO SCH (08:58)
[2021-04-07] MEDS: MAGNESIUM OXIDE 400 MG TABLET PO SCH (08:58)
[2021-04-07] MEDS: CHOLECALCIFEROL 1,000 UNIT TABLET PO SCH (08:59)
[2021-04-07] MEDS: FINASTERIDE 5 MG TABLET PO SCH (08:59)
[2021-04-07] MEDS: ALFUZOSIN HCL 10 MG TAB.SR.24H PO SCH (08:59)
[2021-04-07] MEDS: ASCORBIC ACID 500 MG TABLET PO SCH (09:00)
[2021-04-07] MEDS: INSULIN REGULAR, HUMAN 300 UNIT/3 ML VIAL SQ PRN ×4 (09:11→20:43)
--- NOTE | 2021-04-07 10:57 | NUR ---
Pt daughter came to visits request to speak to RT and the rubber block layer order for dietary place and RT called to PT room to explain and instructed about the used of the BI-PAP.
[2021-04-07 11:57] VITALS: BP 101/68
--- NOTE | 2021-04-07 13:43 | NUR ---
INTERDISCIPLINARY TEAM CONFERENCE
[2021-04-07 16:01] VITALS: BP 127/54
[2021-04-07] MEDS: NUTRISOURCE FIBER 4 GM PACKET PO SCH (16:51)
[2021-04-07] MEDS: RIVAROXABAN 10 MG TABLET PO SCH (17:04)
--- NOTE | 2021-04-07 18:08 | NUR ---
Patient is alert and oriented x 3 with periods of forgetfulness, denies of any pain, patient is comfortable eating his meals 75 to 100 %, ambulating with FWW, all due meds given per MD order, accucheck at 1630 = 185 ,3 units of insulin given as per sliding scale. Bed alarm ON, call light within reach. Patient went off the unit for therapy tolerated well will continue to monitor closely.
[2021-04-07 19:58] VITALS: BP 132/69
[2021-04-07] MEDS: QUETIAPINE FUMARATE 25 MG TABLET PO PRN (20:38)
[2021-04-08 04:25] VITALS: BP 120/62
[2021-04-08] MEDS: PANTOPRAZOLE SODIUM 40 MG TABLET.DR PO SCH (06:07)
[2021-04-08] MEDS: BLOOD SUGAR DIAGNOSTIC 1 EACH STRIP VI SCH ×4 (06:08→20:41)
--- NOTE | 2021-04-08 06:13 | NUR ---
Shift End Report: Vs stable. Slept fairly. Confused and disoriented to place and time. Uncooperative at times, Up and about. No s/s of hypo/hyperglycemia. All needs attended and met. No significant event reported all night. Continue care as planned.
[2021-04-08 08:00] VITALS: BP 118/86
[2021-04-08] MEDS: FERROUS GLUCONATE 324 MG TABLET PO SCH (08:01)
[2021-04-08] MEDS: ASCORBIC ACID 500 MG TABLET PO SCH (08:01)
[2021-04-08] MEDS: FINASTERIDE 5 MG TABLET PO SCH (08:01)
[2021-04-08] MEDS: ALFUZOSIN HCL 10 MG TAB.SR.24H PO SCH (08:01)
[2021-04-08] MEDS: CHOLECALCIFEROL 1,000 UNIT TABLET PO SCH (08:01)
[2021-04-08] MEDS: FUROSEMIDE 20 MG TABLET PO SCH ×2 (08:01→16:37)
[2021-04-08] MEDS: MAGNESIUM OXIDE 400 MG TABLET PO SCH (08:01)
[2021-04-08] MEDS: LINAGLIPTIN 5 MG TABLET PO SCH (08:01)
[2021-04-08] MEDS: NUTRISOURCE FIBER 4 GM PACKET PO SCH ×3 (08:07→17:52)
--- NOTE | 2021-04-08 10:58 | NUR ---
spoke to daughter MELY and ask about patient's POLST as family stated he is on DNR. She said her sister will bring the paper today. Explained to her that he is still full code unless they bring the paper. She verbalized understanding.
[2021-04-08] MEDS: INSULIN REGULAR, HUMAN 300 UNIT/3 ML VIAL SQ PRN ×2 (11:51→20:42)
--- NOTE | 2021-04-08 15:08 | NUR ---
Patient is alert and oriented x 2 with periods of forgetfulness. Cooperative upon assessment. Patient in room air saturating at 95%. Patient denies fo any pain. All needs met promptly , assisted to the bathroom. Call light within easy reach. Per family, they want to DC seroquel and notified Dr. Castillo and ordered Trazodone and OK to DC Seroquel. Family Notified.
[2021-04-08 15:58] VITALS: BP 105/63
[2021-04-08] MEDS: RIVAROXABAN 10 MG TABLET PO SCH (17:06)
[2021-04-08 20:10] VITALS: BP 136/76
[2021-04-08] MEDS: TRAZODONE 50 MG TABLET PO SCH (20:35)
--- NOTE | 2021-04-08 21:33 | NUR ---
21:20 - FAMILY MEMBER REQUEST TO EXPLAIN TO PATIENT ABOUT HOW TO USE CPAP AND WEAR FULL MASK, PT DOING WELL WITH FAMILY MEMBER , MAYBE DAUGHTER PRESENT ,TO WEAR MASK, CPAP 9, PT ON ROOM AIR, DOING WELL, NURSE INFORMED IF ANY PROBLEM TO CALL RTJean FERNÁNDEZ RCP Addendum: 04/08/21 at 2135 by KARTHIK FERNÁNDEZ RT Amended: Links added.
[2021-04-09 04:08] VITALS: BP 133/71
[2021-04-09] MEDS: BLOOD SUGAR DIAGNOSTIC 1 EACH STRIP VI SCH ×4 (05:50→20:02)
[2021-04-09] MEDS: PANTOPRAZOLE SODIUM 40 MG TABLET.DR PO SCH (05:50)
--- NOTE | 2021-04-09 06:26 | NUR ---
Shift End Report: Vs stable. No s/s of respiratory distress. No s/s of hypo/hyperglycemia. Patient stubborn, uncooperative, hard headed patient, never listen to instructions about patient safety and fall prevention. Placed on CPAP last night but can not hold it for even 30 minutes. Always getting out of bed. Bed alarm on all the time and safety measures and fall prevention maintained. No significant event reported. All needs attended and met. Continue care as planned.
[2021-04-09 07:42] VITALS: BP 124/45
[2021-04-09] MEDS: INSULIN REGULAR, HUMAN 300 UNIT/3 ML VIAL SQ PRN ×4 (07:59→20:05)
[2021-04-09] MEDS: MAGNESIUM OXIDE 400 MG TABLET PO SCH (09:26)
[2021-04-09] MEDS: FUROSEMIDE 20 MG TABLET PO SCH ×2 (09:26→17:17)
[2021-04-09] MEDS: FINASTERIDE 5 MG TABLET PO SCH (09:26)
[2021-04-09] MEDS: LINAGLIPTIN 5 MG TABLET PO SCH (09:26)
[2021-04-09] MEDS: CHOLECALCIFEROL 1,000 UNIT TABLET PO SCH (09:26)
[2021-04-09] MEDS: ALFUZOSIN HCL 10 MG TAB.SR.24H PO SCH (09:27)
[2021-04-09] MEDS: FERROUS GLUCONATE 324 MG TABLET PO SCH (09:27)
[2021-04-09] MEDS: ASCORBIC ACID 500 MG TABLET PO SCH (09:27)
[2021-04-09] MEDS: NUTRISOURCE FIBER 4 GM PACKET PO SCH ×3 (09:28→17:17)
[2021-04-09 15:34] VITALS: BP 110/78
[2021-04-09] MEDS: RIVAROXABAN 10 MG TABLET PO SCH (17:09)
--- NOTE | 2021-04-09 18:47 | NUR ---
no distress noted during shift, tolerated PT, OT very well, continue with plan of care
--- NOTE | 2021-04-09 20:00 | NUR ---
NSG: RECEIVED PATIENT AWAKE,ALERT SPEAKS S[place]HAL[place], CAN UNDERSTAND [place], INSULIN GIVEN. BLOOD SUGAR 176 MG/DL. INSULIN GIVEN PER PROTOCOL. DAUGHTER AT BEDSIDE. CONTINUE PLAN OF CARE.
[2021-04-09] MEDS: TRAZODONE 50 MG TABLET PO SCH (20:06)
[2021-04-09 20:15] VITALS: BP 117/79
[2021-04-09 20:20] VITALS: BP 133/50
--- NOTE | 2021-04-09 23:53 | NUR ---
patient assisted with adl's. reposition for comfort. continue plan of care.
[2021-04-10 04:09] VITALS: BP 132/86
--- NOTE | 2021-04-10 05:08 | NUR ---
NSG: Patient slept fairly.Vs stable. Remain Confused and disoriented to place and time. Uncooperative at times, Up and about. No s/s of hypo/hyperglycemia. All needs attended and met. no c/o pain or discomfort at this time. Continue plan of care.
[2021-04-10] MEDS: PANTOPRAZOLE SODIUM 40 MG TABLET.DR PO SCH (06:26)
[2021-04-10] MEDS: BLOOD SUGAR DIAGNOSTIC 1 EACH STRIP VI SCH ×4 (06:27→20:52)
[2021-04-10 07:34] VITALS: BP 107/81
[2021-04-10] MEDS: ASCORBIC ACID 500 MG TABLET PO SCH (08:25)
[2021-04-10] MEDS: LINAGLIPTIN 5 MG TABLET PO SCH (08:25)
[2021-04-10] MEDS: FINASTERIDE 5 MG TABLET PO SCH (08:26)
[2021-04-10] MEDS: FERROUS GLUCONATE 324 MG TABLET PO SCH (08:26)
[2021-04-10] MEDS: MAGNESIUM OXIDE 400 MG TABLET PO SCH (08:26)
[2021-04-10] MEDS: ALFUZOSIN HCL 10 MG TAB.SR.24H PO SCH (08:26)
[2021-04-10] MEDS: FUROSEMIDE 20 MG TABLET PO SCH ×2 (08:26→17:16)
[2021-04-10] MEDS: CHOLECALCIFEROL 1,000 UNIT TABLET PO SCH (08:26)
[2021-04-10] MEDS: NUTRISOURCE FIBER 4 GM PACKET PO SCH ×3 (08:27→17:20)
[2021-04-10] MEDS: INSULIN REGULAR, HUMAN 300 UNIT/3 ML VIAL SQ PRN ×4 (08:30→20:54)
[2021-04-10] MEDS: CLONIDINE-TTS 1 PATCH TD SCH (09:31)
[2021-04-10 15:12] VITALS: BP 116/56
[2021-04-10] MEDS: RIVAROXABAN 10 MG TABLET PO SCH (17:19)
[2021-04-10 20:00] VITALS: BP 113/68
[2021-04-10] MEDS: TRAZODONE 50 MG TABLET PO SCH (20:51)
--- NOTE | 2021-04-10 21:44 | NUR ---
Received pt resting in bed and watching tv. AAO x2-3, forgetful at times. No acute distress noted. Denies pain/ discomfort. Due med given as ordered. Blood sugar 217, insulin coverage given as per sliding scale. Assisted pt to the bathroom. Encouraged to use call light. Bed alarm on. Safety measures maintained. Call light within reach. Will continue to monitor.
[2021-04-11] MEDS: PANTOPRAZOLE SODIUM 40 MG TABLET.DR PO SCH (06:36)
[2021-04-11] MEDS: BLOOD SUGAR DIAGNOSTIC 1 EACH STRIP VI SCH ×4 (06:37→20:56)
[2021-04-11 07:32] VITALS: BP 96/69
[2021-04-11] MEDS: FERROUS GLUCONATE 324 MG TABLET PO SCH (09:20)
[2021-04-11] MEDS: ALFUZOSIN HCL 10 MG TAB.SR.24H PO SCH (09:20)
[2021-04-11] MEDS: FINASTERIDE 5 MG TABLET PO SCH (09:21)
[2021-04-11] MEDS: ASCORBIC ACID 500 MG TABLET PO SCH (09:27)
[2021-04-11] MEDS: LINAGLIPTIN 5 MG TABLET PO SCH (09:27)
[2021-04-11] MEDS: CHOLECALCIFEROL 1,000 UNIT TABLET PO SCH (09:27)
[2021-04-11] MEDS: FUROSEMIDE 20 MG TABLET PO SCH ×2 (09:27→16:34)
[2021-04-11] MEDS: NUTRISOURCE FIBER 4 GM PACKET PO SCH ×3 (09:28→16:35)
[2021-04-11] MEDS: MAGNESIUM OXIDE 400 MG TABLET PO SCH (09:28)
[2021-04-11 16:18] VITALS: BP 120/61
[2021-04-11] MEDS: RIVAROXABAN 10 MG TABLET PO SCH (16:35)
[2021-04-11] MEDS: INSULIN REGULAR, HUMAN 300 UNIT/3 ML VIAL SQ PRN ×2 (16:45→20:58)
[2021-04-11 20:41] VITALS: BP 128/65
[2021-04-11] MEDS: TRAZODONE 50 MG TABLET PO SCH (20:55)
--- NOTE | 2021-04-11 21:36 | NUR ---
Received pt resting in bed and watching tv. AAO x2-3, forgetful at times. No acute distress noted. Denies pain/ discomfort. Due med given as ordered. Blood sugar 164, insulin coverage given as per sliding scale. Assisted pt to the bathroom and walked in the hallway. Pt safely back in bed. Encouraged to use call light. Bed alarm on. Safety measures maintained. Call light within reach. Will continue to monitor.
[2021-04-12 06:18] VITALS: BP 122/75
[2021-04-12] MEDS: BLOOD SUGAR DIAGNOSTIC 1 EACH STRIP VI SCH ×4 (06:58→21:10)
[2021-04-12] MEDS: PANTOPRAZOLE SODIUM 40 MG TABLET.DR PO SCH (06:58)
[2021-04-12 07:30] VITALS: BP 123/82
[2021-04-12] MEDS: INSULIN REGULAR, HUMAN 300 UNIT/3 ML VIAL SQ PRN ×3 (08:01→21:13)
--- NOTE | 2021-04-12 08:36 | NUR ---
Patient is alert and oriented x 3 ,with periods of forgetfulness, able to ambulate with FWW to the BR denies of any pain, BS = 158 , 2 units of R insulin given per sliding scale ,patient is comfortable up sitting on chair having breakfast, Bed alarm ON, call light within reach. Patient on PT /OT for therapy.
[2021-04-12] MEDS: CHOLECALCIFEROL 1,000 UNIT TABLET PO SCH (09:12)
[2021-04-12] MEDS: ASCORBIC ACID 500 MG TABLET PO SCH (09:12)
[2021-04-12] MEDS: FUROSEMIDE 20 MG TABLET PO SCH ×2 (09:12→17:36)
[2021-04-12] MEDS: FINASTERIDE 5 MG TABLET PO SCH (09:12)
[2021-04-12] MEDS: MAGNESIUM OXIDE 400 MG TABLET PO SCH (09:12)
[2021-04-12] MEDS: FERROUS GLUCONATE 324 MG TABLET PO SCH (09:12)
[2021-04-12] MEDS: LINAGLIPTIN 5 MG TABLET PO SCH (09:12)
[2021-04-12] MEDS: NUTRISOURCE FIBER 4 GM PACKET PO SCH ×3 (09:13→17:37)
[2021-04-12] MEDS: ALFUZOSIN HCL 10 MG TAB.SR.24H PO SCH (09:13)
[2021-04-12 15:39] VITALS: BP 115/77
[2021-04-12] MEDS: RIVAROXABAN 10 MG TABLET PO SCH (17:44)
--- NOTE | 2021-04-12 19:47 | NUR ---
PT place on BI PAP by RT no distress noted during shift, tolerated PT, OT very well, continue with plan of care
[2021-04-12 20:17] VITALS: BP 95/67
[2021-04-12] MEDS: TRAZODONE 50 MG TABLET PO SCH (21:07)
[2021-04-13 04:10] VITALS: BP 100/70
[2021-04-13] MEDS: BLOOD SUGAR DIAGNOSTIC 1 EACH STRIP VI SCH ×2 (06:01→11:43)
[2021-04-13] MEDS: PANTOPRAZOLE SODIUM 40 MG TABLET.DR PO SCH (06:01)
[2021-04-13 07:57] VITALS: BP 107/52
[2021-04-13] MEDS: LINAGLIPTIN 5 MG TABLET PO SCH (10:16)
[2021-04-13] MEDS: FUROSEMIDE 20 MG TABLET PO SCH (10:16)
[2021-04-13] MEDS: ASCORBIC ACID 500 MG TABLET PO SCH (10:16)
[2021-04-13] MEDS: FERROUS GLUCONATE 324 MG TABLET PO SCH (10:17)
[2021-04-13] MEDS: CHOLECALCIFEROL 1,000 UNIT TABLET PO SCH (10:17)
[2021-04-13] MEDS: FINASTERIDE 5 MG TABLET PO SCH (10:17)
[2021-04-13] MEDS: ALFUZOSIN HCL 10 MG TAB.SR.24H PO SCH (10:17)
[2021-04-13] MEDS: MAGNESIUM OXIDE 400 MG TABLET PO SCH (10:17)
[2021-04-13] MEDS: NUTRISOURCE FIBER 4 GM PACKET PO SCH (10:18)
[2021-04-13] MEDS: INSULIN REGULAR, HUMAN 300 UNIT/3 ML VIAL SQ PRN (11:42)
--- NOTE | 2021-04-13 12:45 | NUR ---
Discharge instructions provided to the patient and daughter Gregoria at bedside with verbalized understanding. Discharge papers signed by and given to Gregoria. All belongings well accounted for. Patient remains alert, oriented x 4, not in any form of distress, on room air. He denies any pain or discomfort. Needs attended to. Assisted patient to the lobby via wheelchair. Patient picked up by daughter rGegoria via private car.
== END 2021-04-13 12:45 | disposition home health service (06) | DRG 949 ==
PROVIDERS: ADMIT Physical Medicine & Rehabilitation Pain Medicine; ATTEND Physical Medicine & Rehabilitation Pain Medicine
DX: S06.5X9D Traumatic subdural hemorrhage with loss of consciousness of unspecified duration, subsequent encounter (principal); I48.20 Chronic atrial fibrillation, unspecified; I69.398 Other sequelae of cerebral infarction; V49.9XXD Car occupant (driver) (passenger) injured in unspecified traffic accident, subsequent encounter; E11.9 Type 2 diabetes mellitus without complications; Z79.4 Long term (current) use of insulin; E78.5 Hyperlipidemia, unspecified; Z79.01 Long term (current) use of anticoagulants; Z88.6 Allergy status to analgesic agent; S06.6X9D Traumatic subarachnoid hemorrhage with loss of consciousness of unspecified duration, subsequent encounter; R26.81 Unsteadiness on feet; R41.89 Other symptoms and signs involving cognitive functions and awareness; R53.1 Weakness; R07.89 Other chest pain
CPT/HCPCS: 36415; 70450; 85025; 94660; 97161; A9150; J1815; J8499

== ENCOUNTER 2021-09-27 14:46 | Inpatient (IN) | payer MEDICARE, BC ==
[~2021-09-27] VITALS: Ht 167.6 cm; Wt 90.7 kg
[~2021-09-27 14:46] MED LIST changes: +ACET-73 PO; +ALFU10TA10 PO; +ASCO500T10 PO; +CHOL100034; +CLON1PAT TD; +EMPA25TA PO; +FERR240T5 PO; +FINA5TAB11 PO; +FURO20TA4 PO; -GLIP5TAB26 PO; -HYDR-3326 PO; +INSU100I14 SUBCUT; -LACT1CAP57 PO; -LEVO500T2 PO; -LOSA50TA39 PO; +MAGN400T8 PO; -METF-495 PO; -METR-147 PO; +OMEP40CA21 PO; +PREG50CA PO; +QUET25TA PO; +RIVA20TA PO; -ROSU10TA2 PO; +TADA5TAB2 PO; -TAMS0.4C34 PO
[2021-09-27 15:00] VITALS: BP 116/72
[2021-09-27] MEDS ORDERED: REMEDY ESSENTIAL ZINC PASTE 113 GM TOP PRN (15:00)
--- NOTE | 2021-09-27 17:09 | NUR ---
Pt is a direct admission from [facility] to acute rehab unit. Pt was reported to be a/o x 1 but is very alert and able to correctly answer name, , place and time of year. He was found sitting on the floor of the bathroom by [facility] staff after he had walked alone to use restroom. Pt has skin tear on nose bridge and scratch on forehead. XRay of facial bones were negative per report. Pt provided medical history to the best of his ability. Pt is primarily Farsi speaking but speaks and understands Telugu as well. Pt's verbal communication is clear but inappropriate remarks have been made during admission process. Pt was reoriented and charge nurse has been notified. Pt currently sitting on wheelchair in room. No SOB noted, pt is able to move both upper and lower extremities. Per report, pt is ambulatory with 2 person assist and uses front wheel walker. MRSA has been sent. Comfort measures provided, call light within reach. Will continue to monitor.
[2021-09-27] MEDS ORDERED: ASPI81TA31 PO (18:20)
[2021-09-27] MEDS ORDERED: BISA10SU61 RC (18:20)
[2021-09-27] MEDS ORDERED: GLIP10TA11 PO (18:20)
[2021-09-27] MEDS ORDERED: LACT10SO68 PO (18:20)
[2021-09-27] MEDS ORDERED: NA P133E RC (18:20)
[2021-09-27] MEDS ORDERED: DIGO125T PO (18:20)
[2021-09-27] MEDS ORDERED: MAGN400O6 PO (18:20)
[2021-09-27] MEDS ORDERED: ACET-73 PO (18:20)
[2021-09-27] MEDS ORDERED: AMOX1TAB16 PO (18:20)
[2021-09-27] MEDS ORDERED: LINA5TAB PO (18:20)
[2021-09-27] MEDS ORDERED: APIX5TAB4 PO (18:20)
[2021-09-27] MEDS ORDERED: METF-440 PO (18:20)
[2021-09-27] MEDS ORDERED: QUET25TA PO (18:20)
[2021-09-27] MEDS ORDERED: ATOR20TA PO (18:20)
[2021-09-27 20:00] VITALS: BP 105/66
[2021-09-28 04:00] VITALS: BP 127/80
[2021-09-28 07:30] VITALS: BP 115/67
--- NOTE | 2021-09-28 10:36 | NUR ---
Called Dr. Shaikh office for med recon. Jade from exchange stated she left a message. will continue to monitor.
[2021-09-28] MEDS ORDERED: BISACODYL 10 MG SUPP.RECT RC PRN (12:15)
[2021-09-28] MEDS ORDERED: DEXTROSE 50% 50 ML DISP.SYRIN IV PRN (12:15)
[2021-09-28] MEDS ORDERED: FLEET ENEMA 133 ML BOTTLE RC PRN (12:15)
[2021-09-28 16:00] VITALS: BP 124/62
[2021-09-28] MEDS: BLOOD SUGAR DIAGNOSTIC 1 EACH STRIP VI SCH ×2 (16:17→20:38)
[2021-09-28] MEDS: glipiZIDE 10 MG TABLET PO SCH (16:18)
[2021-09-28] MEDS: LACTULOSE 20 G/30 ML LIQUID UDC PO SCH (16:18)
[2021-09-28] MEDS: QUETIAPINE FUMARATE 25 MG TABLET PO SCH (16:18)
[2021-09-28] MEDS: METFORMIN HCL 500 MG TABLET PO SCH (16:18)
[2021-09-28] MEDS: INSULIN REGULAR, HUMAN 300 UNIT/3 ML VIAL SQ PRN ×2 (16:21→20:40)
[2021-09-28] MEDS: APIXABAN 5 MG TABLET PO SCH (16:21)
[2021-09-28] MEDS ORDERED: LACTULOSE PO SCH (17:00)
[2021-09-28] MEDS ORDERED: Medication Not On Formulary EA (Apixaban (Eliquis) 5 MG) PO SCH (17:00)
[2021-09-28] MEDS ORDERED: AMOXICILLIN-CLAVUL 875-125MG TABLET PO SCH (17:00)
[2021-09-28] MEDS ORDERED: ACETAMINOPHEN ES 500 MG TABLET- SA PATIENTS-PAIN ONLY PO SCH ×2 (18:00)
--- NOTE | 2021-09-28 18:25 | NUR ---
Patient remained stable. no acute distress identified. Patient was noted with forgetfulness and confusion. Safety measures maintained. Kept call light within reach. Frequent visual checks done. All needs attends. due meds given. will endorse to the next shift for continuity of care.
[2021-09-28 20:06] VITALS: BP 119/77
[2021-09-28] MEDS: ATORVASTATIN 20 MG TABLET PO SCH (20:35)
[2021-09-29 04:03] VITALS: BP 135/70
--- NOTE | 2021-09-29 05:10 | NUR ---
Safety protocols kept in place. Denies pain. No distress noted. Able to ambulate with FWW. Call light within reach. No other issues or concerns. Will endorse to day shift.
[2021-09-29 06:25] LABS: HEMATOCRIT 36.9 % (36.7-47.1); MEAN CORPUSCULAR HEMOGLOBIN 20.5 uug (23.8-33.4); MEAN CORPUSCULAR VOLUME 65.1 fL (73.0-96.2); PLATELET COUNT (AUTO) 194 K/uL (152-348)
[2021-09-29 06:44] LABS: BILIRUBIN,TOTAL 0.8 mg/dL (0.2-1.0); CREATININE 1.2 mg/dL (0.6-1.3); MAGNESIUM 1.7 mg/dL (1.8-2.4); PHOSPHOROUS 3.4 mg/dL (2.5-4.9); POTASSIUM 3.9 mmol/L (3.5-5.1); TOTAL PROTEIN, SERUM 6.5 g/dL (6.4-8.2)
[2021-09-29] MEDS: BLOOD SUGAR DIAGNOSTIC 1 EACH STRIP VI SCH ×4 (07:49→20:59)
[2021-09-29 07:59] VITALS: BP 134/81
--- NOTE | 2021-09-29 08:36 | NUR ---
INTERDISCIPLINARY TEAM CONFERENCE
[2021-09-29] MEDS ORDERED: ASPIRIN 81 MG TAB.CHEW PO SCH (09:00)
[2021-09-29] MEDS: INSULIN REGULAR, HUMAN 300 UNIT/3 ML VIAL SQ PRN ×4 (09:11→20:59)
[2021-09-29] MEDS: APIXABAN 5 MG TABLET PO SCH ×2 (09:11→16:40)
[2021-09-29] MEDS: LACTULOSE 20 G/30 ML LIQUID UDC PO SCH ×2 (09:12→16:28)
[2021-09-29] MEDS: QUETIAPINE FUMARATE 25 MG TABLET PO SCH ×2 (09:12→16:28)
[2021-09-29] MEDS: LINAGLIPTIN 5 MG TABLET PO SCH (09:12)
[2021-09-29] MEDS: glipiZIDE 10 MG TABLET PO SCH ×2 (09:12→16:28)
[2021-09-29] MEDS: DIGOXIN 125 MCG TABLET PO SCH (09:12)
[2021-09-29] MEDS: METFORMIN HCL 500 MG TABLET PO SCH ×2 (09:12→16:28)
[2021-09-29] MEDS ORDERED: MAGNESIUM OXIDE 400 MG TABLET PO ONE (10:00)
[2021-09-29 11:39] LABS: *BILIRUBIN,URIN NEGATIVE (NEGATIVE); *CLARITY,URINE CLEAR (CLEAR); *COLOR,URINE YELLOW (YELLOW); *KETONES,URINE NEGATIVE (NEGATIVE); LEUKOCYTE ESTERASE ,URINE NEGATIVE (NEGATIVE); NITRITE, URINE NEGATIVE (NEGATIVE); PH,URINE 5.5 (5.0-8.0); UGLUCOSE 1+ (NEGATIVE)
[2021-09-29 11:46] LABS: *BLOOD, URINE TRACE (NEGATIVE)
[2021-09-29 11:49] LABS: *CREATININE,URINE 145.7 mg/dL (30-125); *URINE TOTAL PROTEIN RANDOM 57.4 mg/dL (<150/24HR)
[2021-09-29 15:48] VITALS: BP 122/68
[2021-09-29 18:17] LABS: BACTERIA,URINE NONE SEEN /HPF (NONE SEEN); SQUAMOUS EPITHELIAL CELL,UR FEW /HPF (NONE SEEN); URINE AMORPHOUS URATE MODERATE /HPF; WBC,URINE 0-3 /HPF (0-3)
--- NOTE | 2021-09-29 18:36 | NUR ---
No acute distress identified. Safety measures maintained. Assisted to the toilet with FWW. Kept call light within reach. Frequent visual checks done. All needs attends. due meds given. will endorse to the next shift for continuity of care.
[2021-09-29 20:00] VITALS: BP 123/84
[2021-09-29] MEDS: ATORVASTATIN 20 MG TABLET PO SCH (20:50)
[2021-09-30 04:00] VITALS: BP 106/69
--- NOTE | 2021-09-30 06:26 | NUR ---
Pt slept intermittently throughout the night, snacks given when awake. On room air, no respiratory distress noted. Assisted to toilet using FWW. All needs attended. Call light placed within reach. Frequent visual checks done. Will endorse to next shift for continuity of care.
[2021-09-30] MEDS: BLOOD SUGAR DIAGNOSTIC 1 EACH STRIP VI SCH ×4 (06:50→20:43)
[2021-09-30 06:55] LABS: HEMATOCRIT 38.4 % (36.7-47.1); MEAN CORPUSCULAR HEMOGLOBIN 20.1 uug (23.8-33.4); MEAN CORPUSCULAR VOLUME 65.1 fL (73.0-96.2); PLATELET COUNT (AUTO) 192 K/uL (152-348)
--- NOTE | 2021-09-30 07:15 | NUR ---
Arrived to patient's room resting comfortably in bed with no signs of distress or discomfort. Patient states no pain. Bed left in lowest position with call light within reach. Will continue to monitor patient throughout shift.
[2021-09-30 07:17] LABS: CREATININE 1.2 mg/dL (0.6-1.3); MAGNESIUM 1.9 mg/dL (1.8-2.4); NEUTROPHILS % (MANUAL) 0 % (42-75); PHOSPHOROUS 2.8 mg/dL (2.5-4.9); POTASSIUM 4.1 mmol/L (3.5-5.1); TOTAL PROTEIN, SERUM 7.1 g/dL (6.4-8.2)
[2021-09-30 08:02] VITALS: BP 106/65
[2021-09-30] MEDS: glipiZIDE 10 MG TABLET PO SCH ×2 (08:21→16:31)
[2021-09-30] MEDS: QUETIAPINE FUMARATE 25 MG TABLET PO SCH ×2 (08:21→16:31)
[2021-09-30] MEDS: LINAGLIPTIN 5 MG TABLET PO SCH (08:21)
[2021-09-30] MEDS: METFORMIN HCL 500 MG TABLET PO SCH ×2 (08:22→16:31)
[2021-09-30] MEDS: LACTULOSE 20 G/30 ML LIQUID UDC PO SCH ×2 (08:22→16:31)
[2021-09-30] MEDS: DIGOXIN 125 MCG TABLET PO SCH (08:22)
[2021-09-30] MEDS: APIXABAN 5 MG TABLET PO SCH ×2 (08:23→16:32)
[2021-09-30] MEDS: INSULIN REGULAR, HUMAN 300 UNIT/3 ML VIAL SQ PRN (08:24)
[2021-09-30] MEDS ORDERED: ASPIRIN 81 MG TAB.CHEW PO SCH ×2 (10:43→12:00)
--- NOTE | 2021-09-30 10:52 | NUR ---
Spoke to patient's daughter and notified me that her father does not take aspirin at home anymore, and has been allergic since the patient has been a child. Pharmacy notified. Allergies added.
[2021-09-30 13:07] LABS: A/G RATIO 0.9 (0.7-1.7); ALBUMIN 2.9 g/dL (2.9-4.4); ALPHA-1-GLOBULIN 0.3 g/dL (0.0-0.4); ALPHA-2-GLOBULIN 0.8 g/dL (0.4-1.0); BETA GLOBULIN 0.8 g/dL (0.7-1.3); GAMMA GLOBULIN 1.1 g/dL (0.4-1.8); GLOBULIN, TOTAL 3.1 g/dL (2.2-3.9); M-SPIKE Not Observed g/dL (Not Observed)
[2021-09-30 15:59] VITALS: BP 112/68
--- NOTE | 2021-09-30 18:42 | NUR ---
Patient tolerated care well throughout shift despite episodes of confusion. Patient handled PT well. Patient's blood sugar throughout shift has been within normal limits with no need for insulin. Bed left in lowest position with call light within reach. Will endorse information to PM nurse.
[2021-09-30 20:00] VITALS: BP 116/70
[2021-09-30] MEDS: ATORVASTATIN 20 MG TABLET PO SCH (20:34)
[2021-10-01 04:00] VITALS: BP 136/80
--- NOTE | 2021-10-01 05:36 | NUR ---
Pt consistently makes inappropriate sexual comments towards staff during patient care. Reminded pt constantly that behavior is unbecoming and to respect boundaries. Daughter also made aware of behavior. All needs attended and patient care rendered with another staff member present. Will continue to monitor.
[2021-10-01] MEDS: BLOOD SUGAR DIAGNOSTIC 1 EACH STRIP VI SCH ×4 (06:36→20:31)
[2021-10-01 08:00] VITALS: BP 106/78
[2021-10-01] MEDS: LINAGLIPTIN 5 MG TABLET PO SCH (08:36)
[2021-10-01] MEDS: QUETIAPINE FUMARATE 25 MG TABLET PO SCH ×2 (08:36→17:15)
[2021-10-01] MEDS: METFORMIN HCL 500 MG TABLET PO SCH ×2 (08:36→17:15)
[2021-10-01] MEDS: glipiZIDE 10 MG TABLET PO SCH ×2 (08:37→17:15)
[2021-10-01] MEDS: LACTULOSE 20 G/30 ML LIQUID UDC PO SCH ×2 (08:37→17:15)
[2021-10-01] MEDS: DIGOXIN 125 MCG TABLET PO SCH (08:37)
[2021-10-01] MEDS: APIXABAN 5 MG TABLET PO SCH ×2 (08:38→17:16)
[2021-10-01] MEDS ORDERED: ASPIRIN 81 MG TAB.CHEW PO SCH (09:00)
[2021-10-01 16:00] VITALS: BP 105/66
[2021-10-01 20:00] VITALS: BP 117/71
[2021-10-01] MEDS: ATORVASTATIN 20 MG TABLET PO SCH (20:27)
[2021-10-01] MEDS: INSULIN REGULAR, HUMAN 300 UNIT/3 ML VIAL SQ PRN (20:32)
[2021-10-02 04:00] VITALS: BP 115/72
[2021-10-02] MEDS: BLOOD SUGAR DIAGNOSTIC 1 EACH STRIP VI SCH ×4 (06:30→20:08)
[2021-10-02 08:00] VITALS: BP 123/82
[2021-10-02] MEDS: LACTULOSE 20 G/30 ML LIQUID UDC PO SCH ×2 (08:40→16:55)
[2021-10-02] MEDS: DIGOXIN 125 MCG TABLET PO SCH (08:40)
[2021-10-02] MEDS: QUETIAPINE FUMARATE 25 MG TABLET PO SCH ×2 (08:40→16:55)
[2021-10-02] MEDS: glipiZIDE 10 MG TABLET PO SCH ×2 (08:40→16:54)
[2021-10-02] MEDS: METFORMIN HCL 500 MG TABLET PO SCH ×2 (08:40→16:54)
[2021-10-02] MEDS: APIXABAN 5 MG TABLET PO SCH ×2 (08:42→16:56)
[2021-10-02] MEDS: LINAGLIPTIN 5 MG TABLET PO SCH (08:42)
[2021-10-02 15:54] VITALS: BP 101/65
--- NOTE | 2021-10-02 19:15 | NUR ---
Received patient on bed, awake, alert, not in respiratory distress. No complaint of pain. Verbalizing sexual comments when providing care. Safety precautions provided, call light placed within reach.
[2021-10-02] MEDS: ATORVASTATIN 20 MG TABLET PO SCH (20:05)
[2021-10-02] MEDS: INSULIN REGULAR, HUMAN 300 UNIT/3 ML VIAL SQ PRN (20:11)
[2021-10-02] MEDS: ACETAMINOPHEN 325 MG TABLET PO PRN (20:23)
[2021-10-02 20:25] VITALS: BP 118/68
--- NOTE | 2021-10-02 20:35 | NUR ---
Due medications given, tolerated well. Requested to go to the bathroom for voiding, assisted went to the bathroom, needs minimal assist when ambulating. Requested for snacks, sandwich and apple juice given, ate 100%.
--- NOTE | 2021-10-02 21:10 | NUR ---
Patient sleeping at this time, no signs of unusualities noted.
[2021-10-03 04:26] VITALS: BP 136/88
--- NOTE | 2021-10-03 05:54 | NUR ---
Slept well, assisted went to the bathroom for voiding. Patient in fair condition.
[2021-10-03] MEDS: BLOOD SUGAR DIAGNOSTIC 1 EACH STRIP VI SCH ×4 (06:35→20:34)
--- NOTE | 2021-10-03 06:39 | NUR ---
Patient still feel weak on both lower limbs, need minimum to moderate assist when going out of bed.
[2021-10-03 07:59] VITALS: BP 109/79
--- NOTE | 2021-10-03 08:00 | NUR ---
Set boundaries with pt about sexual comments to the female staff. Pt stated that he wants to have sex with the female CHANNEL [employer]IP STIFFENER [employer]OLES. Told pt that inappropriate behavior and will not be tolerated. Pt had good appetite for breakfast. Assisted to bathroom with MIN A during ambulation and needed verbal cues secondary to pt balance is not 100%.. Pt had large BM.
[2021-10-03] MEDS: DIGOXIN 125 MCG TABLET PO SCH (08:46)
[2021-10-03] MEDS: glipiZIDE 10 MG TABLET PO SCH ×2 (08:46→17:16)
[2021-10-03] MEDS: METFORMIN HCL 500 MG TABLET PO SCH ×2 (08:46→17:17)
[2021-10-03] MEDS: LINAGLIPTIN 5 MG TABLET PO SCH (08:46)
[2021-10-03] MEDS: QUETIAPINE FUMARATE 25 MG TABLET PO SCH ×2 (08:46→17:17)
[2021-10-03] MEDS: APIXABAN 5 MG TABLET PO SCH ×2 (08:47→17:16)
[2021-10-03] MEDS: LACTULOSE 20 G/30 ML LIQUID UDC PO SCH ×2 (08:47→17:16)
[2021-10-03] MEDS: INSULIN REGULAR, HUMAN 300 UNIT/3 ML VIAL SQ PRN ×2 (09:01→20:36)
--- NOTE | 2021-10-03 13:00 | NUR ---
Pt went to sleep after physical therapy. Daughter EDEL inquiring about pt and why he was told daughter that pt didnt sleep well last night and pt just had physical therapy and must be tired from working out. Daughter stated that she hast talked to any doctor and given her updates. Gave phone number for both dr james Chicas and Dr de la vega to call office and voice out her concerns.
[2021-10-03 16:17] VITALS: BP 109/66
[2021-10-03 20:07] VITALS: BP 106/65
[2021-10-03] MEDS: ATORVASTATIN 20 MG TABLET PO SCH (20:33)
[2021-10-04 04:32] VITALS: BP 130/80
[2021-10-04] MEDS: BLOOD SUGAR DIAGNOSTIC 1 EACH STRIP VI SCH ×4 (06:33→21:00)
[2021-10-04 08:01] VITALS: BP 124/65
[2021-10-04] MEDS: DIGOXIN 125 MCG TABLET PO SCH (09:12)
[2021-10-04] MEDS: LACTULOSE 20 G/30 ML LIQUID UDC PO SCH ×2 (09:12→16:53)
[2021-10-04] MEDS: METFORMIN HCL 500 MG TABLET PO SCH ×2 (09:12→16:52)
[2021-10-04] MEDS: glipiZIDE 10 MG TABLET PO SCH ×2 (09:12→16:52)
[2021-10-04] MEDS: QUETIAPINE FUMARATE 25 MG TABLET PO SCH ×2 (09:12→16:52)
[2021-10-04] MEDS: LINAGLIPTIN 5 MG TABLET PO SCH (09:12)
[2021-10-04] MEDS: APIXABAN 5 MG TABLET PO SCH ×2 (09:13→16:53)
[2021-10-04] MEDS: INSULIN REGULAR, HUMAN 300 UNIT/3 ML VIAL SQ PRN (11:49)
--- NOTE | 2021-10-04 15:23 | NUR ---
Pt incontinent of bowel and bladder. Pt had bm in his bed. Encouraged pt to call nursing for assistance when going to bathroom.
[2021-10-04 15:47] VITALS: BP 108/60
[2021-10-04 20:09] VITALS: BP 115/60
[2021-10-04] MEDS: ATORVASTATIN 20 MG TABLET PO SCH (21:00)
[2021-10-05 04:09] VITALS: BP 120/62
[2021-10-05] MEDS: BLOOD SUGAR DIAGNOSTIC 1 EACH STRIP VI SCH ×4 (06:18→21:22)
[2021-10-05 08:00] VITALS: BP 102/60
[2021-10-05] MEDS: APIXABAN 5 MG TABLET PO SCH ×2 (08:11→16:57)
[2021-10-05] MEDS: LACTULOSE 20 G/30 ML LIQUID UDC PO SCH ×2 (08:18→16:32)
[2021-10-05] MEDS: LINAGLIPTIN 5 MG TABLET PO SCH (08:20)
[2021-10-05] MEDS: QUETIAPINE FUMARATE 25 MG TABLET PO SCH ×2 (08:20→17:02)
[2021-10-05] MEDS: glipiZIDE 10 MG TABLET PO SCH ×2 (08:20→16:32)
[2021-10-05] MEDS: DIGOXIN 125 MCG TABLET PO SCH (08:21)
[2021-10-05] MEDS: METFORMIN HCL 500 MG TABLET PO SCH ×2 (08:22→16:32)
[2021-10-05 16:28] VITALS: BP 113/66
--- NOTE | 2021-10-05 17:19 | NUR ---
no events noted during shift
--- NOTE | 2021-10-05 18:54 | NUR ---
Patient does not call for help, get up frequently his own, and tries to ambulate without the fww, redirected, reinforced safety precautions, continue to monitor closely
[2021-10-05 20:03] VITALS: BP 119/69
[2021-10-05] MEDS: ATORVASTATIN 20 MG TABLET PO SCH (20:56)
[2021-10-05] MEDS: INSULIN REGULAR, HUMAN 300 UNIT/3 ML VIAL SQ PRN (21:25)
[2021-10-06 04:03] VITALS: BP 142/80
[2021-10-06] MEDS: BLOOD SUGAR DIAGNOSTIC 1 EACH STRIP VI SCH ×4 (05:46→20:24)
[2021-10-06 06:53] LABS: HEMATOCRIT 34.9 % (36.7-47.1); MEAN CORPUSCULAR HEMOGLOBIN 20.4 uug (23.8-33.4); MEAN CORPUSCULAR VOLUME 64.7 fL (73.0-96.2); PLATELET COUNT (AUTO) 167 K/uL (152-348)
[2021-10-06 07:10] LABS: BILIRUBIN,TOTAL 0.9 mg/dL (0.2-1.0); CREATININE 1.2 mg/dL (0.6-1.3); MAGNESIUM 1.7 mg/dL (1.8-2.4); PHOSPHOROUS 3.3 mg/dL (2.5-4.9); POTASSIUM 4.2 mmol/L (3.5-5.1); TOTAL PROTEIN, SERUM 6.5 g/dL (6.4-8.2)
[2021-10-06] MEDS: LINAGLIPTIN 5 MG TABLET PO SCH (08:13)
[2021-10-06] MEDS: glipiZIDE 10 MG TABLET PO SCH ×2 (08:14→16:43)
[2021-10-06] MEDS: DIGOXIN 125 MCG TABLET PO SCH (08:14)
[2021-10-06] MEDS: LACTULOSE 20 G/30 ML LIQUID UDC PO SCH ×2 (08:14→16:46)
[2021-10-06] MEDS: METFORMIN HCL 500 MG TABLET PO SCH ×2 (08:14→16:44)
[2021-10-06] MEDS: APIXABAN 5 MG TABLET PO SCH ×2 (08:14→16:44)
[2021-10-06] MEDS: INSULIN REGULAR, HUMAN 300 UNIT/3 ML VIAL SQ PRN ×2 (08:15→16:45)
[2021-10-06] MEDS: QUETIAPINE FUMARATE 25 MG TABLET PO SCH ×2 (08:15→16:44)
[2021-10-06 08:26] VITALS: BP 132/87
[2021-10-06] MEDS ORDERED: MAGNESIUM OXIDE 400 MG TABLET PO ONE (09:15)
--- NOTE | 2021-10-06 12:55 | NUR ---
INTERDISCIPLINARY TEAM CONFERENCE
[2021-10-06 16:48] VITALS: BP 112/75
--- NOTE | 2021-10-06 18:37 | NUR ---
patient uses inappropriate words toward staff, redirected, with some effectiveness, no events noted during shift.
[2021-10-06 20:00] VITALS: BP 109/68
[2021-10-06] MEDS: ATORVASTATIN 20 MG TABLET PO SCH (20:03)
[2021-10-06] MEDS: ACETAMINOPHEN 325 MG TABLET PO PRN (20:03)
[2021-10-06] MEDS: ZOLPIDEM 5 MG TABLET PO SCH (21:35)
--- NOTE | 2021-10-07 02:16 | NUR ---
Luzmariaien given PRN as ordered, ineffective. Patient is awake, getting out of the bed. Unaware of safety measures. Kept call light within reach, alarm activated. High risk for fall. will continue to monitor.
[2021-10-07 04:47] VITALS: BP 118/76
--- NOTE | 2021-10-07 06:17 | NUR ---
Patient remained stable during the shift, no distress identified. Safety measures maintained. will endorse to the next shift for continuity of care.
[2021-10-07] MEDS: BLOOD SUGAR DIAGNOSTIC 1 EACH STRIP VI SCH ×4 (07:35→20:46)
[2021-10-07 07:55] VITALS: BP 135/89
[2021-10-07] MEDS: glipiZIDE 10 MG TABLET PO SCH ×2 (08:14→16:29)
[2021-10-07] MEDS: QUETIAPINE FUMARATE 25 MG TABLET PO SCH ×2 (08:14→16:29)
[2021-10-07] MEDS: DIGOXIN 125 MCG TABLET PO SCH (08:15)
[2021-10-07] MEDS: LINAGLIPTIN 5 MG TABLET PO SCH (08:15)
[2021-10-07] MEDS: METFORMIN HCL 500 MG TABLET PO SCH ×2 (08:15→16:29)
[2021-10-07] MEDS: LACTULOSE 20 G/30 ML LIQUID UDC PO SCH ×2 (08:15→16:08)
[2021-10-07] MEDS: APIXABAN 5 MG TABLET PO SCH ×2 (08:17→16:30)
[2021-10-07 15:15] VITALS: BP 139/67
--- NOTE | 2021-10-07 18:43 | NUR ---
Patient continue to use profane language toward nurses, redirected, with some effectiveness only, tries multiple times to get up from chair and bed without calling for assistant designer, not using his FWW, patient constantly yells and kept calling "LADY" even just helped and needs met. very needy and demanding. kept clean and dry, assisted to the bathroom multiple times. all needs met timely, call light with in reach, bed alarm is on for safely.
[2021-10-07] MEDS: ACETAMINOPHEN 325 MG TABLET PO PRN (19:57)
[2021-10-07 20:06] VITALS: BP 120/70
[2021-10-07] MEDS: ATORVASTATIN 20 MG TABLET PO SCH (20:45)
[2021-10-07] MEDS: ZOLPIDEM 5 MG TABLET PO SCH (20:46)
[2021-10-08 05:16] VITALS: BP 128/71
--- NOTE | 2021-10-08 06:40 | NUR ---
Patient slept intermittently.Ambien ineffective.Gets out of bed multiple times without calling for assistance. Bed alarm on.Reinforced teaching to use call light for assistance and safety measures. Patient voided well. BMx1.Monitor frequently. Snacks provided. Patient continue to makes inappropriate comments.Continue to educate patient about his behavior will not be tolerated.BS 112.All needs anticipated and met accordingly.VSS
[2021-10-08 08:15] VITALS: BP 126/82
[2021-10-08] MEDS: BLOOD SUGAR DIAGNOSTIC 1 EACH STRIP VI SCH ×4 (08:47→20:16)
[2021-10-08] MEDS: METFORMIN HCL 500 MG TABLET PO SCH ×2 (08:48→16:55)
[2021-10-08] MEDS: LACTULOSE 20 G/30 ML LIQUID UDC PO SCH ×2 (08:48→16:55)
[2021-10-08] MEDS: glipiZIDE 10 MG TABLET PO SCH ×2 (08:48→16:55)
[2021-10-08] MEDS: QUETIAPINE FUMARATE 25 MG TABLET PO SCH ×2 (08:48→16:56)
[2021-10-08] MEDS: DIGOXIN 125 MCG TABLET PO SCH (08:49)
[2021-10-08] MEDS: LINAGLIPTIN 5 MG TABLET PO SCH (08:49)
[2021-10-08] MEDS: APIXABAN 5 MG TABLET PO SCH ×2 (08:50→16:56)
[2021-10-08 15:08] VITALS: BP 120/67
[2021-10-08] MEDS: ZOLPIDEM 5 MG TABLET PO SCH (20:16)
[2021-10-08] MEDS: ATORVASTATIN 20 MG TABLET PO SCH (20:17)
[2021-10-08 20:53] VITALS: BP 104/54
[2021-10-09 04:33] VITALS: BP 122/81
[2021-10-09] MEDS: BLOOD SUGAR DIAGNOSTIC 1 EACH STRIP VI SCH ×4 (06:31→20:23)
[2021-10-09 07:31] VITALS: BP 130/64
[2021-10-09] MEDS: APIXABAN 5 MG TABLET PO SCH ×2 (09:00→16:26)
[2021-10-09] MEDS: glipiZIDE 10 MG TABLET PO SCH ×2 (09:05→16:24)
[2021-10-09] MEDS: QUETIAPINE FUMARATE 25 MG TABLET PO SCH ×2 (09:05→16:24)
[2021-10-09] MEDS: LACTULOSE 20 G/30 ML LIQUID UDC PO SCH ×2 (09:05→16:24)
[2021-10-09] MEDS: METFORMIN HCL 500 MG TABLET PO SCH ×2 (09:06→16:24)
[2021-10-09] MEDS: LINAGLIPTIN 5 MG TABLET PO SCH (09:06)
[2021-10-09] MEDS: DIGOXIN 125 MCG TABLET PO SCH (09:06)
[2021-10-09 15:02] VITALS: BP 105/67
[2021-10-09] MEDS: ATORVASTATIN 20 MG TABLET PO SCH (20:22)
[2021-10-09] MEDS: ZOLPIDEM 5 MG TABLET PO SCH (20:22)
[2021-10-09 20:32] VITALS: BP 109/74
[2021-10-10 04:42] VITALS: BP 117/73
--- NOTE | 2021-10-10 06:29 | NUR ---
Pt slept intermittently with routine Ambien given. Toileting assistance rendered with use of walker. Accucheck done, BS 89. All needs attended. Call light placed within reach. Will endorse to next shift.
[2021-10-10] MEDS: BLOOD SUGAR DIAGNOSTIC 1 EACH STRIP VI SCH ×4 (06:34→21:04)
[2021-10-10 08:00] VITALS: BP 122/54
[2021-10-10] MEDS: LACTULOSE 20 G/30 ML LIQUID UDC PO SCH ×2 (08:38→16:36)
[2021-10-10] MEDS: QUETIAPINE FUMARATE 25 MG TABLET PO SCH ×2 (08:38→16:36)
[2021-10-10] MEDS: glipiZIDE 10 MG TABLET PO SCH ×2 (08:38→16:36)
[2021-10-10] MEDS: LINAGLIPTIN 5 MG TABLET PO SCH (08:39)
[2021-10-10] MEDS: DIGOXIN 125 MCG TABLET PO SCH (08:39)
[2021-10-10] MEDS: METFORMIN HCL 500 MG TABLET PO SCH ×2 (08:39→16:36)
[2021-10-10] MEDS: APIXABAN 5 MG TABLET PO SCH ×2 (08:41→16:37)
--- NOTE | 2021-10-10 19:00 | NUR ---
Received patient on bed, alert x2-3, no shortness of breath noted, no complaint of pain. safety precautions provided, call light within reach.
[2021-10-10 20:41] VITALS: BP 118/76
[2021-10-10] MEDS: ATORVASTATIN 20 MG TABLET PO SCH (20:58)
[2021-10-10] MEDS: ZOLPIDEM 5 MG TABLET PO SCH (20:58)
[2021-10-10] MEDS: ACETAMINOPHEN 325 MG TABLET PO PRN (23:06)
--- NOTE | 2021-10-11 00:48 | NUR ---
Patient frequently wants to go to the bathroom for voiding, refused to use the urinal. Assisted to ambulate to the bathroom with the use of the walker. Addendum: 10/11/21 at 0635 by AG HOLDEN RN RN Patient slept intermittently, frequently going to the bathroom for voiding. Skin intact, no complaint of pain, no shortness of breath. Patient in fair condition. For possible discharge today.
[2021-10-11 04:28] VITALS: BP 112/63
[2021-10-11] MEDS: BLOOD SUGAR DIAGNOSTIC 1 EACH STRIP VI SCH ×2 (06:12→11:38)
[2021-10-11 08:01] VITALS: BP 92/53
[2021-10-11] MEDS: METFORMIN HCL 500 MG TABLET PO SCH (08:27)
[2021-10-11] MEDS: glipiZIDE 10 MG TABLET PO SCH (08:27)
[2021-10-11] MEDS: QUETIAPINE FUMARATE 25 MG TABLET PO SCH (08:27)
[2021-10-11] MEDS: LINAGLIPTIN 5 MG TABLET PO SCH (08:27)
[2021-10-11] MEDS: DIGOXIN 125 MCG TABLET PO SCH (08:28)
[2021-10-11] MEDS: LACTULOSE 20 G/30 ML LIQUID UDC PO SCH (08:28)
[2021-10-11] MEDS: APIXABAN 5 MG TABLET PO SCH (08:29)
[2021-10-11] MEDS: INSULIN REGULAR, HUMAN 300 UNIT/3 ML VIAL SQ PRN (11:39)
--- NOTE | 2021-10-11 12:25 | NUR ---
Discharged patient via private car with his two daughters to Assisted Living. Kaye form the facility was given report. Skin intact. No distress identified. Denies pain. Dc instructions given. Belonging list signed. Medication list given as ordered.
== END 2021-10-11 12:25 | disposition home health service (06) | DRG 189 ==
PROVIDERS: ADMIT Physical Medicine & Rehabilitation Pain Medicine; ATTEND Physical Medicine & Rehabilitation Pain Medicine
DX: J96.00 Acute respiratory failure, unspecified whether with hypoxia or hypercapnia (principal); G93.41 Metabolic encephalopathy; N17.0 Acute kidney failure with tubular necrosis; J69.0 Pneumonitis due to inhalation of food and vomit; L03.116 Cellulitis of left lower limb; I12.9 Hypertensive chronic kidney disease with stage 1 through stage 4 chronic kidney disease, or unspecified chronic kidney disease; N18.9 Chronic kidney disease, unspecified; R55 Syncope and collapse; E11.22 Type 2 diabetes mellitus with diabetic chronic kidney disease; I48.91 Unspecified atrial fibrillation; Z86.73 Personal history of transient ischemic attack (TIA), and cerebral infarction without residual deficits; R53.1 Weakness; Z91.81 History of falling; I25.10 Atherosclerotic heart disease of native coronary artery without angina pectoris; Z88.6 Allergy status to analgesic agent
CPT/HCPCS: 36415; 70030-TC; 71045; 83735; 83970; 84100; 84155; 84156; 84165; 84300; 85025; 87086; 97161; 97535-GO-CO; A4663; A6209; J1815

== ENCOUNTER 2021-10-22 16:30 | Inpatient (IN) | payer MEDICARE, BC ==
[~2021-10-22] VITALS: Ht 167.6 cm; Wt 99.8 kg
[~2021-10-22 16:30] MED LIST changes: -ALFU10TA10 PO; +AMOX1TAB16 PO; +APIX5TAB4 PO; -ASCO500T10 PO; +ATOR20TA PO; +BISA10SU61 RC; -CHOL100034; -CLON1PAT TD; +DIGO125T PO; -EMPA25TA PO; -FERR240T5 PO; -FINA5TAB11 PO; -FURO20TA4 PO; +GLIP10TA11 PO; -INSU100I14 SUBCUT; +LACT10SO68 PO; +LINA5TAB PO; -MAGN400T8 PO; +METF-440 PO; +NA P133E RC; -OMEP40CA21 PO; -PREG50CA PO; -RIVA20TA PO; -TADA5TAB2 PO
--- NOTE | 2021-10-22 16:40 | NUR ---
MD at bedside, medical screening exam in progress.
[2021-10-22 17:06] LABS: CARBON DIOXIDE 26 mmol/L (21-32); CHLORIDE 102 mmol/L (98-107); CREATININE 0.9 mg/dL (0.6-1.3); GLUCOSE 172 mg/dL (74-106); POTASSIUM 4.4 mmol/L (3.5-5.1); UREA NITROGEN, BLOOD 20 mg/dL (7-18)
[2021-10-22 17:15] LABS: ALANINE AMINOTRANSFERASE 37 U/L (16-63); ALKALINE PHOSPHATASE 75 U/L (50-136); ASPARTATE AMINOTRANSFERASE 23 U/L (15-37); BILIRUBIN,DIRECT 0.3 mg/dL (0.0-0.2); BILIRUBIN,TOTAL 1.4 mg/dL (0.2-1.0); TOTAL PROTEIN, SERUM 7.3 g/dL (6.4-8.2)
--- NOTE | 2021-10-22 17:26 | NUR ---
Covid specimen sent to lab.
[2021-10-22] MEDS ORDERED: ACETAMINOPHEN ES 500 MG TABLET PO ONE (17:30)
[2021-10-22 17:31] LABS: HEMATOCRIT 34.1 % (36.7-47.1); MEAN CORPUSCULAR HEMOGLOBIN 20.5 uug (23.8-33.4); MEAN CORPUSCULAR VOLUME 65.4 fL (73.0-96.2); PLATELET COUNT (AUTO) 157 K/uL (152-348)
[2021-10-22] MEDS ORDERED: ACETAMINOPHEN ES 500 MG TABLET ONE (17:41)
--- NOTE | 2021-10-22 17:41 | NUR ---
UA sent to lab
[2021-10-22 17:51] LABS: *BILIRUBIN,URIN 1+ (NEGATIVE); *CLARITY,URINE CLEAR (CLEAR); *COLOR,URINE YELLOW (YELLOW); *KETONES,URINE TRACE (NEGATIVE); LEUKOCYTE ESTERASE ,URINE NEGATIVE (NEGATIVE); NITRITE, URINE NEGATIVE (NEGATIVE); PH,URINE 5.5 (5.0-8.0); UGLUCOSE TRACE (NEGATIVE)
[2021-10-22 17:52] LABS: *BLOOD, URINE TRACE (NEGATIVE)
[2021-10-22] MEDS ORDERED: LORAZEPAM 2 MG/1 ML VIAL ONE ×3 (17:55→21:48)
[2021-10-22] MEDS ORDERED: LORAZEPAM 2 MG/1 ML VIAL IV ONE ×5 (18:00→21:15)
[2021-10-22] MEDS ORDERED: AZITHROMYCIN IV 500 MG in IV DEXTROSE 5% 250 ML IV ONE (19:00)
[2021-10-22] MEDS ORDERED: CEFTRIAXONE 1 G in IV DEXTROSE 5% 50 ML IV ONE (19:00)
--- NOTE | 2021-10-22 19:05 | NUR ---
RECEIVED REPORT FROM MEGHNA HOFFMAN. PT NOTED TO BE IN BED RESTING WITH EYES CLOSED BUT ABLE TO BE AROUSED. BREATHING EVEN AND UNLABORED. DENIES AY PAIN/DISCOMFORT AT THIS TIME. A/O X2.
[2021-10-22] MEDS ORDERED: CEFTRIAXONE /D5W 50ML IVPB **ER PYXIS IV ONE (19:07)
[2021-10-22] MEDS ORDERED: AZITHROMYCIN 500MG/ D5W 250ML IVPB **ER PYXIS ONLY IV ONE (19:08)
--- NOTE | 2021-10-22 19:15 | NUR ---
MRSA specimen sent to lab.
--- NOTE | 2021-10-22 19:16 | NUR ---
DR. ARZOLA ON PHONE WITH DR. ROMERO.
--- NOTE | 2021-10-22 21:02 | NUR ---
GAVE REPORT TO
[2021-10-22 22:22] LABS: BACTERIA,URINE NONE SEEN /HPF (NONE SEEN); RBC,URINE 0-3 /HPF (0-3); SQUAMOUS EPITHELIAL CELL,UR FEW /HPF (NONE SEEN); URINE AMORPHOUS URATE MODERATE /HPF; WBC,URINE 0-3 /HPF (0-3)
--- NOTE | 2021-10-22 23:48 | NUR ---
Pt. admitted to TELE , under care of FINAL ASSEMBLER BOAT Lulu Reich Dx: syncope Belongs List completed Pt admitted in stable condition, no changes in LOC. VSS.
[2021-10-23] VITALS: BP 138/78
--- NOTE | 2021-10-23 | NUR ---
Received patient from ER per reji, alert, not in respiratory distress, on room air, no complaint of pain. Safety precautions provided, oriented with the use of call light. Routine admission care done.
[2021-10-23] MEDS ORDERED: ONDANSETRON 4 MG/2 ML VIAL IV PRN (00:45)
[2021-10-23] MEDS ORDERED: BISACODYL 10 MG SUPP.RECT RC PRN (01:15)
[2021-10-23] MEDS ORDERED: FLEET ENEMA 133 ML BOTTLE RC PRN (01:15)
[2021-10-23] MEDS ORDERED: CEFTRIAXONE 1 G VIAL ONE (01:24)
[2021-10-23] MEDS ORDERED: ACETAMINOPHEN ES 500 MG TABLET PO PRN (01:45)
[2021-10-23] MEDS ORDERED: ACETAMINOPHEN 325 MG TABLET PO PRN (01:45)
--- NOTE | 2021-10-23 03:00 | NUR ---
Oxygen saturation 86-89% when sleeping, administered Oxygen at 3L/min via nasal cannula, repositioned for comfort. Head bed elevated.
[2021-10-23 04:00] VITALS: BP 127/85
--- NOTE | 2021-10-23 04:00 | NUR ---
Patient still with low oxygen saturation 90% with oxygen at 4L via nasal cannula, Afib with RVR at tele monitor restless, respiration 25/minute, and with audible wheezing sounds. Contacted Dr Shaikh, able to speak with the computer numerical control operator, and said she will text Dr Shaikh to call back.
--- NOTE | 2021-10-23 04:25 | NUR ---
No response from Dr Shaikh, contacted RN field pipelines supervisor, informed patient`s condition.
--- NOTE | 2021-10-23 04:35 | NUR ---
RN glass cut off supervisor in the patient`s room, RT came, O2 with non rebreather mask administered, Digoxin 125mcg PO given at this time. Keep patient monitored
[2021-10-23] MEDS ORDERED: DIGOXIN 125 MCG TABLET ONE (04:55)
[2021-10-23] MEDS: DIGOXIN 125 MCG TABLET PO SCH (05:02)
--- NOTE | 2021-10-23 05:02 | NUR ---
Patient is Tachycardeic HR 110, Tachypneic RR 25 and complaining of mild chest pain, Digoxin 125mcg which is scheduled for 9AM given at this time based on patient`s status.
--- NOTE | 2021-10-23 05:09 | NUR ---
Received call from Dr Shaikh with STAT orders and carried out (CBC, CMP, D-dimer, Troponin, EKG and CXR). patient alert and oriented to self.
[2021-10-23 05:28] LABS: HEMATOCRIT 34.2 % (36.7-47.1); MEAN CORPUSCULAR HEMOGLOBIN 20.6 uug (23.8-33.4); MEAN CORPUSCULAR VOLUME 65.1 fL (73.0-96.2); PLATELET COUNT (AUTO) 141 K/uL (152-348)
--- NOTE | 2021-10-23 05:47 | NUR ---
With Afib and frequent PVC on tele, HR range from 88-130 maximum within the shift. Complaint of chest pain x1 around 0440am. PAtient still on O2 non rebreather mask, saturating at 97%, HR 97, RR 25/min.
[2021-10-23 05:50] LABS: CREATININE 1.1 mg/dL (0.6-1.3); POTASSIUM 4.5 mmol/L (3.5-5.1); TOTAL PROTEIN, SERUM 7.2 g/dL (6.4-8.2)
--- NOTE | 2021-10-23 06:45 | NUR ---
D-Dimer result .85, notified Dr Shaikh, with order for CT Chest angio with contrast and breathing treatment. Consent received over the phone for the procedure from the patient`s daughter Robert Arthur phone no. [phone]. witnessed by another RN. IV access at left antecubital g-20 inserted. Patient still restless, tachypneic RR- 25/min, and tachycardeic HR-110/min, still with oxygen via non rebreather mask at 15L.
[2021-10-23] MEDS ORDERED: METFORMIN HCL 500 MG TABLET PO SCH (08:00)
[2021-10-23] MEDS: APIXABAN 5 MG TABLET PO SCH ×2 (08:16→16:35)
[2021-10-23] MEDS: LINAGLIPTIN 5 MG TABLET PO SCH (08:16)
[2021-10-23] MEDS: QUETIAPINE FUMARATE 25 MG TABLET PO SCH ×2 (08:16→16:35)
[2021-10-23] MEDS: glipiZIDE 10 MG TABLET PO SCH ×2 (08:16→16:34)
--- NOTE | 2021-10-23 08:28 | NUR ---
received pt on 15L nonrebreather due to shortness of breath, saturating 99%. Pt is restless and trying to get out of bed. New Iv on left ac 20 g. pt scheduled for CTA with contrast. Consent in chart obtained via telephone from daughter. Pt is redirected at this time. Will continue to closely monitor.
[2021-10-23] MEDS ORDERED: IOHEXOL 350 100 ML INFUS..BTL ONE (08:46)
[2021-10-23] MEDS ORDERED: IV NORMAL SALINE 250 ML IV ONE (08:48)
[2021-10-23] MEDS ORDERED: SWABABLE VALVE TRANSFER SET EA MC ONE (08:49)
[2021-10-23 11:12] VITALS: BP 117/68
--- NOTE | 2021-10-23 11:21 | NUR ---
pt is calm and sleeping in bed, SpO2 at 100%. will monitor and titrate as tolerated.
--- NOTE | 2021-10-23 12:03 | NUR ---
pt titrated to 10L nonrebreather, SpO2 100%. Will continue to monitor.
[2021-10-23 15:17] VITALS: BP 132/79
--- NOTE | 2021-10-23 16:33 | NUR ---
pt has been titrated to 5L NC, SpO2 is 97%.
--- NOTE | 2021-10-23 19:30 | NUR ---
RECD PT IN BED, ALERT X 1 ONLY,ON OXYGEN INHALATION OF5L/MIN VIA NC, ON TELE, SINUS TACH FROM 95-115, SLIGHTLY AGITATED, VITAL SIGNS TAKEN AND RECORDED, TEMP 100AXILLARY , RESP20, O2 SAT 95%,SKIN WARM AND FLUSHED,REPOSITIONED , ROOM TEMP REGULATED, NEEDS ATTENDED TO, MONITOR FOR SAFETY AND COMFORT.
[2021-10-23] MEDS: LEVALBUTEROL HCL 1.25 MG/0.5 ML NEB NEB PRN (20:00)
[2021-10-23 20:09] VITALS: BP 126/46
[2021-10-23] MEDS: CEFTRIAXONE 1 G in IV DEXTROSE 5% 50 ML IV SCH (20:14)
[2021-10-23] MEDS: ATORVASTATIN 20 MG TABLET PO SCH (20:14)
[2021-10-23] MEDS: ACETAMINOPHEN 325 MG TABLET PO PRN (20:15)
--- NOTE | 2021-10-23 20:45 | NUR ---
SKILLED ASSESSMENT DONE, PT STILL WHEEZING, RESPIRATORY TX ADMINISTERED, ICE PACK APPLIED, DUE MEDS GIVEN , IV SITES INTACT. DR. TAY NOTIFIED.
--- NOTE | 2021-10-23 22:20 | NUR ---
[facility]ARD[facility] DRIP, TRANSFER PT TO TELE TD, ATRIAL FIB W/ V TACH EPISODES CONTINUE, ,MONITORED CLOSELY FOR ANY CHANGE IN CONDITION. LOWER EXTREMITIES , OFF LOADED ,W PILLOWS. CARDIZEM DRIP STARTED PER PROTOCOL. [facility] MADE AWARE OF NEW ORDERS.125 MG CARDIZEM IN 1N 100 ML D5W , STARTED AT 5ML/HR VIA IV SITE ON LEFT ANTECUBITAL AREA. REPOSITINED FOR COMFOERT,
[2021-10-23] MEDS ORDERED: DILTIAZEM HCL 25 MG IV ONE (22:40)
[2021-10-23] MEDS ORDERED: DEXTROSE 5% IV PRN (23:00)
[2021-10-23] MEDS ORDERED: DILTIAZEM HCL IV PRN (23:00)
[2021-10-23] MEDS ORDERED: DILTIAZEM HCL IV 125 MG in IV DEXTROSE 5% 100 ML IV PRN ×2 (23:14→23:39)
[2021-10-23] MEDS: ZOLPIDEM 5 MG TABLET PO PRN (23:45)
[2021-10-24 00:02] VITALS: BP 104/60
--- NOTE | 2021-10-24 01:24 | NUR ---
KEPT DRY AND CLEAN , HR IN THE HIGH 80'S AND LOW 90'S. RESTING AT THIS TIME.
--- NOTE | 2021-10-24 01:26 | NUR ---
PT'S DAUGHTER CALLED AND ASCERTAINED PT CONDITION, PT IS ON DNR STATUS.AFEBRILE AT THIS TIME.
--- NOTE | 2021-10-24 03:00 | NUR ---
STILL ON CARDIZEM DRIP AT 5MG/HR, TELE READING HR STILL GOES UP AND DOWN FROM 78-111,SLEPT AT SHORT INTERVALS,
[2021-10-24 04:00] VITALS: BP 108/56
[2021-10-24 06:32] LABS: HEMATOCRIT 32.8 % (36.7-47.1); MEAN CORPUSCULAR HEMOGLOBIN 20.8 uug (23.8-33.4); MEAN CORPUSCULAR VOLUME 65.8 fL (73.0-96.2); PLATELET COUNT (AUTO) 123 K/uL (152-348)
[2021-10-24 06:51] LABS: CREATININE 1.1 mg/dL (0.6-1.3); MAGNESIUM 1.9 mg/dL (1.8-2.4); PHOSPHOROUS 3.3 mg/dL (2.5-4.9); POTASSIUM 3.8 mmol/L (3.5-5.1)
--- NOTE | 2021-10-24 06:53 | NUR ---
PT ACCIDENTALLY PULLED OUT HIS IV LINE ONLEFT HAND, AM VCARE DONE, CLEANED AND KEPT DRY, COMPLETE LINEN CHANGE DONE.
[2021-10-24 07:55] VITALS: BP 118/77
--- NOTE | 2021-10-24 08:00 | NUR ---
Pt constant pulling out his o2 and pt desaturate to 82% sat. L LE's redness noted. PT is in no acute distress. Call light is within reach.
[2021-10-24] MEDS: LINAGLIPTIN 5 MG TABLET PO SCH (08:47)
[2021-10-24] MEDS: QUETIAPINE FUMARATE 25 MG TABLET PO SCH ×2 (08:47→17:52)
[2021-10-24] MEDS: APIXABAN 5 MG TABLET PO SCH ×2 (08:48→17:52)
[2021-10-24] MEDS: DIGOXIN 125 MCG TABLET PO SCH (08:48)
[2021-10-24] MEDS: REMEDY ESSENTIAL ZINC PASTE 113 GM TOP SCH (08:51)
[2021-10-24] MEDS: glipiZIDE 10 MG TABLET PO SCH ×2 (08:51→17:55)
--- NOTE | 2021-10-24 11:00 | NUR ---
Daughter here to see pt. Gave phone number of DR Shaikh and case management phone numbers. Daughter wants to have a plan for hospice.
[2021-10-24 11:55] VITALS: BP 106/62
[2021-10-24] MEDS ORDERED: DEXTROSE 50% 50 ML DISP.SYRIN IV PRN (12:15)
[2021-10-24] MEDS: AZITHROMYCIN IV 500 MG in IV DEXTROSE 5% 250 ML IV SCH (13:08)
[2021-10-24] MEDS: BLOOD SUGAR DIAGNOSTIC 1 EACH STRIP VI SCH ×2 (18:02→21:00)
--- NOTE | 2021-10-24 19:00 | NUR ---
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
--- NOTE | 2021-10-24 19:14 | NUR ---
Pt had no episodes of V tach. Pt continuously pulls 02 even with frequent reorientation. Applied Mittens for pt's safety. Bed alarm effective. No fall noted this shift.
[2021-10-24 20:00] VITALS: BP 133/66
--- NOTE | 2021-10-24 20:00 | NUR ---
STILL ON CARDIZEM DRIP,5MG/HR.REPOSITIONED FOR COMFORT, ATTEMPTS OF TRYING TO GET OUT OF BED X2, KEPT DRY AND CLEAN. MONITORED FOR SAFETY.
[2021-10-24] MEDS: CEFTRIAXONE 1 G in IV DEXTROSE 5% 50 ML IV SCH (22:29)
[2021-10-24] MEDS: ATORVASTATIN 20 MG TABLET PO SCH (22:30)
[2021-10-24] MEDS: INSULIN REGULAR, HUMAN 300 UNIT/3 ML VIAL SQ PRN (22:43)
[2021-10-24] MEDS: QUETIAPINE FUMARATE 25 MG TABLET PO PRN (22:54)
--- NOTE | 2021-10-24 22:54 | NUR ---
PT WOKE UP AND STARTED TO BE SGITATED AND RESTLESS, MEDICATED W/ SEROQUEL 25 MG ORDERED BY . HS CARE DONE.IV SITES INFILTRATED, NEW IVACCESS RESTARTED, PROCEDURE TOLERATED WELL BY PT.
[2021-10-25] VITALS (7 sets, daily range): BP systolic 103–127; BP diastolic 59–76
[2021-10-25] MEDS: REMEDY ESSENTIAL ZINC PASTE 113 GM TOP SCH ×3 (00:16→20:27)
--- NOTE | 2021-10-25 00:40 | NUR ---
AFEBRILE, CALMER AND RELAXED AT THIS TIME. MITTENS RELEASED AND APPLIED APPROPRIATELY.DOZING OFF.
[2021-10-25] MEDS: ZOLPIDEM 5 MG TABLET PO PRN (03:01)
--- NOTE | 2021-10-25 05:19 | NUR ---
TELE READING ,AFIB 85, APPEARS SLEEPING SOUNDLY.REPOSITIONED. STILL ON CARDIZEM DRIP AT ORDERED RATE.IV SITES ON RT ARM PATENT AND INTACT.NO DISTRESS NOTED, VSS TAKEN AND RECORDED.MITTENS ON FOR SAFETY.
--- NOTE | 2021-10-25 05:24 | NUR ---
CONTINUES TO BE ON DNR STATUS.UNEVENTFUL NOC.
[2021-10-25] MEDS: BLOOD SUGAR DIAGNOSTIC 1 EACH STRIP VI SCH ×4 (06:48→20:25)
[2021-10-25 07:17] LABS: HEMATOCRIT 30.3 % (36.7-47.1); MEAN CORPUSCULAR HEMOGLOBIN 20.6 uug (23.8-33.4); MEAN CORPUSCULAR VOLUME 65.1 fL (73.0-96.2); PLATELET COUNT (AUTO) 112 K/uL (152-348)
[2021-10-25 07:32] LABS: BILIRUBIN,TOTAL 1.9 mg/dL (0.2-1.0); CREATININE 1.1 mg/dL (0.6-1.3); MAGNESIUM 1.9 mg/dL (1.8-2.4); PHOSPHOROUS 3.4 mg/dL (2.5-4.9); POTASSIUM 4.3 mmol/L (3.5-5.1); TOTAL PROTEIN, SERUM 6.6 g/dL (6.4-8.2)
--- NOTE | 2021-10-25 08:00 | NUR ---
RECEIVED PT ON BED SLEEPING. STILL ON CARDIZEM DRIP ORDERED. WITH MITTEN ON FOR RESTRAINT.
[2021-10-25] MEDS: glipiZIDE 10 MG TABLET PO SCH ×2 (08:40→17:37)
[2021-10-25] MEDS: DIGOXIN 125 MCG TABLET PO SCH (08:41)
[2021-10-25] MEDS: QUETIAPINE FUMARATE 25 MG TABLET PO SCH ×2 (08:41→17:37)
[2021-10-25] MEDS: LINAGLIPTIN 5 MG TABLET PO SCH (08:41)
[2021-10-25] MEDS: APIXABAN 5 MG TABLET PO SCH ×2 (08:42→17:37)
[2021-10-25] MEDS: REMEDY ESSENTIAL ZINC PASTE 113 GM TP PRN (08:48)
--- NOTE | 2021-10-25 10:00 | NUR ---
CALLED DR. TAY TO CLARIFY IF HE IS THE PRIMARY DRJean AND ASK FOR THE THE H&P Addendum: 10/25/21 at 1900 by NADIA MONTOYA RN NOTIFIED DR. SALAZAR THAT H&P IS NOT DONE. DR. TAY CONFIRMS HE IS THE PRIMARY
--- NOTE | 2021-10-25 10:40 | NUR ---
PATIENT'S DAUGHTER ASK IF SHE CAN TALK WITH THE MD REGARDING HER FATHER TO BE IN HOSPICE CARE.
[2021-10-25] MEDS: MUPIROCIN 2% OINT 22 GM TUBE NS SCH ×2 (11:51→20:26)
[2021-10-25] MEDS: INSULIN REGULAR, HUMAN 300 UNIT/3 ML VIAL SQ PRN ×2 (11:53→20:26)
[2021-10-25] MEDS: AZITHROMYCIN IV 500 MG in IV DEXTROSE 5% 250 ML IV SCH (12:24)
[2021-10-25] MEDS: DILTIAZEM HCL 30 MG TABLET PO SCH ×3 (12:48→23:18)
[2021-10-25] MEDS: LEVALBUTEROL HCL 1.25 MG/0.5 ML NEB NEB PRN (16:30)
--- NOTE | 2021-10-25 18:00 | NUR ---
Daughter here to see patient in afternoon. Pt more awake alert and cooperative at the time. PT was feeding himself with dinner. Throughout shift Mittens was taken off when safe. Continous offer of restroom to patient effective no fall noted this shift.
[2021-10-25] MEDS: METFORMIN HCL 500 MG TABLET PO SCH (18:23)
--- NOTE | 2021-10-25 19:30 | NUR ---
Received patient lying in bed. Sleeping off and on. AOx1 only, mainly confused and disoriented. In no apparent distress. No signs or symptoms of pain or SOB. On O2 at 3LPm via NC in place. O2 sat at 96%. Young hand mittens in place. Hand/wrist circulation checked. IV site on right FA and right AC intact and patent. Needs assessed and attended to. Safety measure initiated. Continue to monitor.
[2021-10-25] MEDS: CEFTRIAXONE 1 G in IV DEXTROSE 5% 50 ML IV SCH (20:26)
[2021-10-25] MEDS: ATORVASTATIN 20 MG TABLET PO SCH (20:27)
[2021-10-26] MEDS: QUETIAPINE FUMARATE 25 MG TABLET PO PRN ×3 (03:24→20:15)
--- NOTE | 2021-10-26 05:06 | NUR ---
AOx1-2 only, mainly confused and disoriented but able to make some needs known. In no acute distress. Denies any pain or SOB. Remains on O2 at 3LPm via NC in place. Young hand mittens in place. Seroquel 25mg PO given per order PRN for anxiety/agitation with some help. IV site on right FA and right AC intact and patent. No adverse effect noted from IV antibiotic. Needs attended to and met. Safety measure maintained. Continue to monitor.
[2021-10-26 05:12] VITALS: BP 127/73
[2021-10-26] MEDS: DILTIAZEM HCL 30 MG TABLET PO SCH ×4 (05:38→23:58)
[2021-10-26] MEDS: glipiZIDE 10 MG TABLET PO SCH ×2 (06:32→08:25)
[2021-10-26] MEDS: BLOOD SUGAR DIAGNOSTIC 1 EACH STRIP VI SCH ×4 (06:32→20:14)
--- NOTE | 2021-10-26 07:30 | NUR ---
RECEIVED PATIENT ON BED CONFUSED AND WANT TO TAKE HIS OXYGEN OFF. ON 4L/MIN NC. SKIN INTEGRITY IS INTACT. DAUGHTER CAME BY TO VISIT AND TALK TO DR. TAY. Addendum: 10/26/21 at 1034 by NADIA MONTOYA RN BILATERAL SANTHOSH IS IN PLACED
[2021-10-26] MEDS: METFORMIN HCL 500 MG TABLET PO SCH ×2 (08:25→17:01)
[2021-10-26] MEDS: LINAGLIPTIN 5 MG TABLET PO SCH (08:25)
[2021-10-26] MEDS: DIGOXIN 125 MCG TABLET PO SCH (08:25)
[2021-10-26] MEDS: QUETIAPINE FUMARATE 25 MG TABLET PO SCH ×2 (08:25→17:00)
[2021-10-26] MEDS: APIXABAN 5 MG TABLET PO SCH ×2 (08:45→17:01)
[2021-10-26] MEDS: MUPIROCIN 2% OINT 22 GM TUBE NS SCH ×2 (08:46→20:15)
[2021-10-26 12:00] VITALS: BP 122/73
[2021-10-26] MEDS: AZITHROMYCIN IV 500 MG in IV DEXTROSE 5% 250 ML IV SCH (12:27)
--- NOTE | 2021-10-26 14:00 | NUR ---
PT IS CONFUSED AND AGITATED WANT TO GET OUT OF THE BED. GAVE PRN SEROQUEL 25MG DIRECTED.
[2021-10-26] MEDS: REMEDY ESSENTIAL ZINC PASTE 113 GM TOP SCH ×2 (15:00→20:15)
--- NOTE | 2021-10-26 16:00 | NUR ---
IV-LINE INFRACTION NOTED. REMOVE LEFT AC AND FOREARM PERIPHERAL IV ACCESS. PUT ICE COMPRESS FOR SWELLING.
[2021-10-26] MEDS: LEVALBUTEROL HCL 1.25 MG/0.5 ML NEB NEB PRN (16:02)
[2021-10-26 16:07] VITALS: BP 105/66
--- NOTE | 2021-10-26 17:10 | NUR ---
MIDLINE IV 18G ACCESS ON RIGHT ARM AND PERIPHERAL IV 20G ACCESS ON LEFT HAND WAS INSERTED
[2021-10-26] MEDS: MAGNESIUM HYDROXIDE 30 ML LIQUID UDC PO PRN (17:55)
[2021-10-26] MEDS: INSULIN REGULAR, HUMAN 300 UNIT/3 ML VIAL SQ PRN (18:00)
--- NOTE | 2021-10-26 18:28 | NUR ---
NO BM NOTED FOR THE LAST 2 DAYS. MILK OF MAGNESIA WAS GIVEN. WILL FOLLOW UP WITH ONCOMING SHIFT IF EFFECTIVE.
--- NOTE | 2021-10-26 19:30 | NUR ---
Received patient lying in bed. AAOx1 only, mainly confused and disoriented. In no acute distress. No signs or symptoms of pain or SOB. On O2 at 3LPm via NC in place. O2 sat at 97%. A. Fib on tele with HR of 91/min. Young hand mittens in place. Hand/wrist circulation checked. Midline on right brachial area and PIV on left hand intact and patent. Needs assessed and attended to. Safety measure initiated. Continue to monitor.
[2021-10-26] MEDS: ATORVASTATIN 20 MG TABLET PO SCH (20:14)
[2021-10-26] MEDS: CEFTRIAXONE 1 G in IV DEXTROSE 5% 50 ML IV SCH (20:14)
[2021-10-26 20:48] VITALS: BP 121/73
[2021-10-26] MEDS: ZOLPIDEM 5 MG TABLET PO PRN (21:21)
[2021-10-26 23:49] VITALS: BP 116/73
[2021-10-27 04:13] VITALS: BP 133/73
[2021-10-27] MEDS: QUETIAPINE FUMARATE 25 MG TABLET PO PRN ×3 (04:58→23:53)
[2021-10-27] MEDS: DILTIAZEM HCL 30 MG TABLET PO SCH (05:03)
--- NOTE | 2021-10-27 06:27 | NUR ---
Patient sleeps off and on during the night. Seroquel 25mg po every 6 hours PRN given for anxiety/agitation and effective. In no acute distress. Denies any pain or SOB. O2 at 3LPm via NC in place. A. fib on tele with Hr of 80/min. Patient had 1 episode of SVT foe 9 seconds and converted back to A. fib after. Young hand mittens in place. Midline on right brachial area and PIV on left hand intact and patent. No adverse effect noted from IV antibiotic. Needs attended to and met. Safety measure maintained.
[2021-10-27] MEDS: BLOOD SUGAR DIAGNOSTIC 1 EACH STRIP VI SCH ×5 (06:34→21:08)
[2021-10-27] MEDS: glipiZIDE 10 MG TABLET PO SCH ×2 (06:34→18:02)
--- NOTE | 2021-10-27 07:30 | NUR ---
Awake, confused, yelling. Reoriented. With bilateral hands mittens, monitored per protocol. O2 at 3L/NC with O2 sat of 96%.
[2021-10-27] MEDS: QUETIAPINE FUMARATE 25 MG TABLET PO SCH ×2 (08:59→18:02)
[2021-10-27] MEDS: LINAGLIPTIN 5 MG TABLET PO SCH (08:59)
[2021-10-27] MEDS: METFORMIN HCL 500 MG TABLET PO SCH ×2 (08:59→18:02)
[2021-10-27] MEDS: APIXABAN 5 MG TABLET PO SCH ×2 (09:00→18:03)
[2021-10-27] MEDS: DIGOXIN 125 MCG TABLET PO SCH (09:00)
[2021-10-27] MEDS: MUPIROCIN 2% OINT 22 GM TUBE NS SCH ×2 (09:03→21:50)
[2021-10-27] MEDS: REMEDY ESSENTIAL ZINC PASTE 113 GM TP PRN (09:04)
[2021-10-27] MEDS: REMEDY ESSENTIAL ZINC PASTE 113 GM TOP SCH ×2 (09:04→21:51)
--- NOTE | 2021-10-27 11:00 | NUR ---
Assisted out of bed by PT, able to only make a few steps.
[2021-10-27 11:50] VITALS: BP 132/82
[2021-10-27] MEDS: DILTIAZEM HCL CD 120 MG CAP.SR.24H PO SCH (12:39)
[2021-10-27] MEDS: AZITHROMYCIN IV 500 MG in IV DEXTROSE 5% 250 ML IV SCH (12:39)
[2021-10-27] MEDS: INSULIN REGULAR, HUMAN 300 UNIT/3 ML VIAL SQ PRN (12:41)
--- NOTE | 2021-10-27 14:40 | NUR ---
Patient restless, agitated, yelling. Seroquel PRN given. Calm after
[2021-10-27 15:50] VITALS: BP 112/78
--- NOTE | 2021-10-27 18:30 | NUR ---
BG 67. Apple juice given. Assisted with dinner, only ate 25 % nutrition supplement. Repeat BG 117
--- NOTE | 2021-10-27 19:40 | NUR ---
Received patient in bed, alert, verbally responsive, on tele monitor A fib control, no sob no chest pain. Patient has episode of non compliant with medication, refused to take medications, become combative, reorient patient, kept clean dry and comfortable.
[2021-10-27 20:00] VITALS: BP 132/67
[2021-10-27] MEDS: ATORVASTATIN 20 MG TABLET PO SCH (21:21)
[2021-10-27] MEDS: ZOLPIDEM 5 MG TABLET PO PRN (21:24)
[2021-10-27] MEDS: CEFTRIAXONE 1 G in IV DEXTROSE 5% 50 ML IV SCH (21:29)
[2021-10-28 04:00] VITALS: BP 135/87
[2021-10-28] MEDS: BLOOD SUGAR DIAGNOSTIC 1 EACH STRIP VI SCH ×4 (05:45→20:36)
[2021-10-28 06:42] LABS: HEMATOCRIT 32.7 % (36.7-47.1); MEAN CORPUSCULAR HEMOGLOBIN 20.5 uug (23.8-33.4); MEAN CORPUSCULAR VOLUME 65.4 fL (73.0-96.2); PLATELET COUNT (AUTO) 169 K/uL (152-348)
[2021-10-28 07:12] LABS: MAGNESIUM 1.9 mg/dL (1.8-2.4); PHOSPHOROUS 3.7 mg/dL (2.5-4.9); POTASSIUM 4.3 mmol/L (3.5-5.1)
[2021-10-28 07:50] VITALS: BP 135/70
[2021-10-28 08:01] LABS: ABG BASE EXCESS 0.9 mmol/L; ABG HCO3 25.3 mmol/L; ABG PCO2 39.7 mmHg (35.0-45.0); ABG PH 7.422 (7.350-7.450); ABG PO2 77.8 mmHg (75.0-100.0); ABG SITE RIGHT RADIAL; ABG TOTAL HEMOGLOBIN 11.7 G/dL (13.5-18.0); COHb 0.7 % (0.5-1.5); MetHb 0.2 % (0.0-1.5); O2Hb 94.2 % (94.0-97.0); VENT MODE Nasal Cannula
[2021-10-28] MEDS: METFORMIN HCL 500 MG TABLET PO SCH ×2 (08:04→18:12)
[2021-10-28] MEDS: glipiZIDE 10 MG TABLET PO SCH ×2 (08:04→18:12)
[2021-10-28] MEDS ORDERED: FUROSEMIDE 20 MG/2 ML VIAL IV ONE ×2 (08:15→12:30)
[2021-10-28] MEDS: REMEDY ESSENTIAL ZINC PASTE 113 GM TOP SCH ×2 (09:00→20:18)
[2021-10-28 11:12] VITALS: BP 137/77
[2021-10-28] MEDS: LINAGLIPTIN 5 MG TABLET PO SCH (11:50)
[2021-10-28] MEDS: DILTIAZEM HCL CD 120 MG CAP.SR.24H PO SCH (11:50)
[2021-10-28] MEDS: APIXABAN 5 MG TABLET PO SCH ×2 (11:51→18:12)
[2021-10-28] MEDS: QUETIAPINE FUMARATE 25 MG TABLET PO SCH ×2 (11:51→18:12)
[2021-10-28] MEDS: MUPIROCIN 2% OINT 22 GM TUBE NS SCH ×2 (12:04→20:18)
[2021-10-28] MEDS: REMEDY ESSENTIAL ZINC PASTE 113 GM TP PRN ×2 (12:04→12:05)
[2021-10-28] MEDS: DIGOXIN 125 MCG TABLET PO SCH (12:05)
--- NOTE | 2021-10-28 12:40 | NUR ---
lasix given earlier, that is why the second order was not given.
[2021-10-28 15:30] VITALS: BP 138/62
[2021-10-28] MEDS: ATORVASTATIN 20 MG TABLET PO SCH (20:17)
[2021-10-28] MEDS: CEFTRIAXONE 1 G in IV DEXTROSE 5% 50 ML IV SCH (20:17)
--- NOTE | 2021-10-28 20:20 | NUR ---
RECEIVED PATIENT IN BED. AWAKE, ALERT, ORIENTED TO SELF ONLY. REORIENTED PATIENT ACCORDINGLY. CONTROLLED AFIB ON TELEMONITOR WITH HR OF 86BPM. ON 2L O2 SATURATING AT 96%. DIANA MIDLINE AND L WRIST IV ACCESS BOTH PATENT AND INTACT. WITH BILATERAL SOFT MITTENS. CIRCULATION CHECKED [id number]. NO SIGNS OF DISTRESS AT THIS TIME. SAFETY PRECAUTIONS INITIATED. CLOSELY MONITORED.
[2021-10-28 20:24] VITALS: BP 119/72
[2021-10-28] MEDS: INSULIN REGULAR, HUMAN 300 UNIT/3 ML VIAL SQ PRN (20:40)
[2021-10-29] MEDS: QUETIAPINE FUMARATE 25 MG TABLET PO PRN ×2 (00:07→23:59)
[2021-10-29 00:27] VITALS: BP 136/62
[2021-10-29 05:00] VITALS: BP 163/67
[2021-10-29] MEDS: glipiZIDE 10 MG TABLET PO SCH ×2 (06:32→16:23)
[2021-10-29] MEDS: BLOOD SUGAR DIAGNOSTIC 1 EACH STRIP VI SCH ×4 (06:32→21:09)
--- NOTE | 2021-10-29 06:53 | NUR ---
PATIENT SLEPT INTERMITTENTLY THROUGH THE NIGHT, WITH EPISODES OF AGITATION AND CONFUSION. PRN ZOLPIDEM AND SEROQUEL GIVEN ORDERED AND TOLERATED WELL. IV ACCESS PATENT AND INTACT. ATRIAL FIBRILLATION CONTROLLED ON TELEMONITOR WITH HR OF 88BPM. ON 2L O2 SATURATING AT 96%. ALL NEEDS ATTENDED TO AND MET. SAFETY PRECAUTIONS MAINTAINED. ENDORSED TO DAY SHIFT.
[2021-10-29] MEDS: METFORMIN HCL 500 MG TABLET PO SCH ×2 (07:37→18:15)
[2021-10-29] MEDS: LINAGLIPTIN 5 MG TABLET PO SCH (08:37)
[2021-10-29] MEDS: QUETIAPINE FUMARATE 25 MG TABLET PO SCH ×2 (08:38→16:23)
[2021-10-29] MEDS: DIGOXIN 125 MCG TABLET PO SCH (08:45)
[2021-10-29] MEDS: DILTIAZEM HCL CD 120 MG CAP.SR.24H PO SCH (08:46)
[2021-10-29] MEDS: REMEDY ESSENTIAL ZINC PASTE 113 GM TP PRN (09:12)
[2021-10-29] MEDS: MUPIROCIN 2% OINT 22 GM TUBE NS SCH ×2 (09:12→21:08)
[2021-10-29] MEDS: REMEDY ESSENTIAL ZINC PASTE 113 GM TOP SCH ×2 (09:13→21:10)
[2021-10-29] MEDS: APIXABAN 5 MG TABLET PO SCH ×2 (09:19→16:23)
[2021-10-29 12:15] VITALS: BP 127/75
[2021-10-29 17:13] VITALS: BP 144/70
[2021-10-29] MEDS: ATORVASTATIN 20 MG TABLET PO SCH (20:23)
[2021-10-29 20:37] VITALS: BP 114/78
[2021-10-29] MEDS: ZOLPIDEM 5 MG TABLET PO PRN (21:08)
[2021-10-29] MEDS: CEFTRIAXONE 1 G in IV DEXTROSE 5% 50 ML IV SCH (21:23)
[2021-10-29] MEDS: MAGNESIUM HYDROXIDE 30 ML LIQUID UDC PO PRN ×2 (23:06→23:07)
--- NOTE | 2021-10-29 23:13 | NUR ---
Patient climbs out of bed, stated he wanted to go the toilet, obtained bedside commode and assisted patient to the commode, with small bm, and he passed gas, given MOM po for constipation, cont to monitor.
[2021-10-30 00:21] VITALS: BP 138/65
--- NOTE | 2021-10-30 01:00 | NUR ---
Patient assisted to bedside commode for bowel elimination, but no BM yet, pass gas at this time, complain of constipation, given MOM 30ml, complain of being hungry given sandwich plus a juice, with episode of needy behavior, yelling wanting more attention, resistive with care, refused to medication, needs lots of encouragement before taking his medications, given seroquel 25mg po as ordered, prn with no adverse reaction noted, cont to monitor.
[2021-10-30 04:19] VITALS: BP 130/79
[2021-10-30 06:01] LABS: HEMATOCRIT 36.2 % (36.7-47.1); MEAN CORPUSCULAR HEMOGLOBIN 20.3 uug (23.8-33.4); MEAN CORPUSCULAR VOLUME 64.8 fL (73.0-96.2); PLATELET COUNT (AUTO) 214 K/uL (152-348)
[2021-10-30 06:14] LABS: CREATININE 1.1 mg/dL (0.6-1.3); MAGNESIUM 2.1 mg/dL (1.8-2.4); PHOSPHOROUS 3.9 mg/dL (2.5-4.9); POTASSIUM 3.8 mmol/L (3.5-5.1)
[2021-10-30] MEDS: BLOOD SUGAR DIAGNOSTIC 1 EACH STRIP VI SCH ×4 (06:50→21:33)
--- NOTE | 2021-10-30 07:02 | NUR ---
Patient awake, no sob no chest pain, no complain of pain, patient still has confusion, hyperverbal, incontinet of bladder, MOM has no results yet, endorsed to the next shift, tolerate current diet, encourage to eat. cont to monitor.
--- NOTE | 2021-10-30 08:00 | NUR ---
AWAKE ALERT BUT FORGETFUL, REQUIRES MIN MAX ASSIST WITH ADLS ON RA SATURATING 97% CONTROLLED AFIB ON MONITOR
[2021-10-30] MEDS: DILTIAZEM HCL CD 120 MG CAP.SR.24H PO SCH (08:29)
[2021-10-30] MEDS: DIGOXIN 125 MCG TABLET PO SCH (08:29)
[2021-10-30] MEDS: glipiZIDE 10 MG TABLET PO SCH ×2 (08:29→17:16)
[2021-10-30] MEDS: MUPIROCIN 2% OINT 22 GM TUBE NS SCH ×2 (08:30→21:32)
[2021-10-30] MEDS: QUETIAPINE FUMARATE 25 MG TABLET PO SCH ×2 (08:30→17:16)
[2021-10-30] MEDS: METFORMIN HCL 500 MG TABLET PO SCH ×2 (08:30→17:17)
[2021-10-30] MEDS: LINAGLIPTIN 5 MG TABLET PO SCH (08:30)
[2021-10-30] MEDS: APIXABAN 5 MG TABLET PO SCH ×2 (08:31→17:17)
[2021-10-30] MEDS: REMEDY ESSENTIAL ZINC PASTE 113 GM TOP SCH ×2 (08:32→21:33)
[2021-10-30 11:30] VITALS: BP 119/65
--- NOTE | 2021-10-30 12:00 | NUR ---
NO ACUTE CHANGE FROM MORNING ASSESSMENT, CONTINUE WITH TELE MONITORING
--- NOTE | 2021-10-30 16:47 | NUR ---
REMAINS AFIB BUT CONTROLLED ON MONITOR, DENIES CHEST PAIN OR SOB.
[2021-10-30 17:08] VITALS: BP 116/70
[2021-10-30] MEDS: GLUCERNA SHAKE 237 ML CAN PO SCH (17:18)
[2021-10-30 20:14] VITALS: BP 119/66
--- NOTE | 2021-10-30 21:00 | NUR ---
Pt resting on bed; daughter at bedside; patient's daughter is concerned for pt's quality of life; offered social work eval
[2021-10-30] MEDS: ZOLPIDEM 5 MG TABLET PO PRN (21:30)
[2021-10-30] MEDS: ATORVASTATIN 20 MG TABLET PO SCH (21:33)
[2021-10-30] MEDS: CEFTRIAXONE 1 G in IV DEXTROSE 5% 50 ML IV SCH (21:36)
--- NOTE | 2021-10-31 | NUR ---
pt out of bed and into BSC and had a small BM; 2 person assist atthis time; back to bed safely.
[2021-10-31 00:26] VITALS: BP 138/75
[2021-10-31] MEDS: QUETIAPINE FUMARATE 25 MG TABLET PO PRN ×2 (01:36→22:41)
[2021-10-31 04:46] VITALS: BP 126/77
[2021-10-31] MEDS: BLOOD SUGAR DIAGNOSTIC 1 EACH STRIP VI SCH ×4 (06:33→20:52)
--- NOTE | 2021-10-31 08:00 | NUR ---
AWAKE ALERT AND VERBALLY RESPONSIVE, VERY FORGETFUL. GETS UP OUT OF BED BY SELF MOST OF THE TIME, CLOSELY MONITORED. DEPENDENT WITH MOST ADLS. SR ON MONITOR
[2021-10-31] MEDS: DIGOXIN 125 MCG TABLET PO SCH (08:10)
[2021-10-31] MEDS: LINAGLIPTIN 5 MG TABLET PO SCH (08:10)
[2021-10-31] MEDS: glipiZIDE 10 MG TABLET PO SCH ×2 (08:10→16:27)
[2021-10-31] MEDS: DILTIAZEM HCL CD 120 MG CAP.SR.24H PO SCH (08:11)
[2021-10-31] MEDS: METFORMIN HCL 500 MG TABLET PO SCH ×2 (08:11→16:27)
[2021-10-31] MEDS: APIXABAN 5 MG TABLET PO SCH ×2 (08:11→16:27)
[2021-10-31] MEDS: QUETIAPINE FUMARATE 25 MG TABLET PO SCH ×2 (08:11→16:25)
[2021-10-31] MEDS: MUPIROCIN 2% OINT 22 GM TUBE NS SCH ×2 (08:12→20:49)
[2021-10-31] MEDS: REMEDY ESSENTIAL ZINC PASTE 113 GM TOP SCH ×2 (08:12→20:50)
[2021-10-31] MEDS: GLUCERNA SHAKE 237 ML CAN PO SCH ×3 (08:12→16:25)
[2021-10-31 11:46] VITALS: BP 131/87
--- NOTE | 2021-10-31 12:03 | NUR ---
NO ACUTE CHANGE FROM MORNING ASSESSMENT, REQUIRES CONSTANT MONITORING FOR SAFETY. ALWAYS TRY TO GET UP AND OUT OF BED BY SELF. REORIENTATION DONE.
[2021-10-31 13:15] VITALS: BP 128/80
--- NOTE | 2021-10-31 13:15 | NUR ---
NOTED PATIENT WITH 4 SECONDS OF V-TACH DENIES PAIN, WEIR OR DIZZINESS VS TAKEN WNL. OBSERVED
--- NOTE | 2021-10-31 16:04 | NUR ---
DR FLORES CALLED BACK SAID NO ORDERS BUT CONTINUE TELEMETRY. PATIENT REMAINS STABLE, DENIES PAIN OR SOB
--- NOTE | 2021-10-31 16:28 | NUR ---
GLIPIZIDE AND GLUCOPHAGE NOT GIVEN BS 69. PATIENT AWAKE ALERT AND ORIENTED X3 WARM AND DRY SKIN. OJ GIVENAND OBSERVED
[2021-10-31 16:52] VITALS: BP 114/68
[2021-10-31 20:14] VITALS: BP 113/70
[2021-10-31] MEDS: CEFTRIAXONE 1 G in IV DEXTROSE 5% 50 ML IV SCH (20:42)
[2021-10-31] MEDS: ATORVASTATIN 20 MG TABLET PO SCH (20:44)
[2021-10-31] MEDS: ZOLPIDEM 5 MG TABLET PO PRN (20:44)
[2021-10-31] MEDS: ACETAMINOPHEN 325 MG TABLET PO PRN (20:44)
[2021-11-01 00:27] VITALS: BP 126/72
--- NOTE | 2021-11-01 02:27 | NUR ---
pt had episodes of non sustained V tach; pt remains on O2; will continue to monitor.
[2021-11-01 04:50] VITALS: BP 102/50
[2021-11-01] MEDS: BLOOD SUGAR DIAGNOSTIC 1 EACH STRIP VI SCH ×4 (06:50→21:12)
--- NOTE | 2021-11-01 08:00 | NUR ---
Received patient awake, alert and oriented. Denies pain or SOB. Pt is on and off O2 2L NC. [facility] assessment done, no new skin issues identified. Bilateral lower ext. discoloration noted. Safety initiated. Call light within reach.
[2021-11-01] MEDS: DIGOXIN 125 MCG TABLET PO SCH (09:36)
[2021-11-01] MEDS: LINAGLIPTIN 5 MG TABLET PO SCH (09:38)
[2021-11-01] MEDS: DILTIAZEM HCL CD 120 MG CAP.SR.24H PO SCH (09:38)
[2021-11-01] MEDS: QUETIAPINE FUMARATE 25 MG TABLET PO SCH ×2 (09:39→16:34)
[2021-11-01] MEDS: REMEDY ESSENTIAL ZINC PASTE 113 GM TOP SCH ×2 (09:39→21:29)
[2021-11-01] MEDS: APIXABAN 5 MG TABLET PO SCH ×2 (09:39→16:35)
[2021-11-01] MEDS: GLUCERNA SHAKE 237 ML CAN PO SCH ×3 (09:40→16:38)
[2021-11-01] MEDS: glipiZIDE 10 MG TABLET PO SCH ×2 (09:42→16:34)
[2021-11-01] MEDS: METFORMIN HCL 500 MG TABLET PO SCH ×2 (09:44→17:02)
[2021-11-01] MEDS ORDERED: ALBUTEROL SULFATE 2.5 MG/3 ML NEBU NEB PRN (10:45)
[2021-11-01 12:11] VITALS: BP 121/67
[2021-11-01] MEDS: INSULIN REGULAR, HUMAN 300 UNIT/3 ML VIAL SQ PRN (12:39)
[2021-11-01 16:24] VITALS: BP 126/65
--- NOTE | 2021-11-01 17:29 | NUR ---
Pt remains on O2 2L NC. No new skin issues noted. Patient made multiple trips to the restroom with moderate assist. safety and comfort measures maintained t/o shift. All meds given as ordered. All needs met.
--- NOTE | 2021-11-01 20:10 | NUR ---
RECEIVED PATIENT ON BED RELAX AND WATCHING TV. ON RA O2 98%. IV R HAND 20G. NO PAIN COMPLAIN. HIS DAUGHTER VISITED FOR A LITTLE BIT.
[2021-11-01 21:27] VITALS: BP 120/69
[2021-11-01] MEDS: ATORVASTATIN 20 MG TABLET PO SCH (21:29)
[2021-11-01] MEDS: CEFTRIAXONE 1 G in IV DEXTROSE 5% 50 ML IV SCH (21:29)
[2021-11-02 04:35] VITALS: BP 130/69
--- NOTE | 2021-11-02 06:27 | NUR ---
PATIENT WENT TO THE BATHROOM MULTIPLE TIMES DURING THE NIGHT. BUT NO AGITATION OR CONFUSION NOTED. STILL ON ROOM AIR O2 SAT 95%. vITAL WNL.
[2021-11-02] MEDS: GLUCERNA SHAKE 237 ML CAN PO SCH ×3 (08:00→17:43)
--- NOTE | 2021-11-02 08:00 | NUR ---
RESTING IN BED NO SS OF PAIN OR SOB, MILDLY FORGETFUL REORIENTATION DONE. AWAITING DC ORDER
[2021-11-02] MEDS: glipiZIDE 10 MG TABLET PO SCH ×2 (08:25→17:43)
[2021-11-02] MEDS: BLOOD SUGAR DIAGNOSTIC 1 EACH STRIP VI SCH ×3 (08:25→16:22)
[2021-11-02] MEDS: QUETIAPINE FUMARATE 25 MG TABLET PO SCH ×2 (08:26→17:41)
[2021-11-02] MEDS: DILTIAZEM HCL CD 120 MG CAP.SR.24H PO SCH (08:26)
[2021-11-02] MEDS: LINAGLIPTIN 5 MG TABLET PO SCH (08:26)
[2021-11-02] MEDS: METFORMIN HCL 500 MG TABLET PO SCH ×2 (08:26→17:41)
[2021-11-02] MEDS: DIGOXIN 125 MCG TABLET PO SCH (08:26)
[2021-11-02] MEDS: APIXABAN 5 MG TABLET PO SCH ×2 (08:27→17:42)
[2021-11-02] MEDS: REMEDY ESSENTIAL ZINC PASTE 113 GM TOP SCH (09:31)
--- NOTE | 2021-11-02 12:00 | NUR ---
NO ACUTE CHANGE FROM MORNING ASSESSMENT, CONTINUE WITH PHYSICAL THERAPY EXERCISES, SEE NOTES
[2021-11-02 12:55] VITALS: BP 106/77
[2021-11-02 16:54] VITALS: BP 107/73
--- NOTE | 2021-11-02 18:14 | NUR ---
PATIENT STABLE DENIES PAIN OR DISTRESS, AWAITING PLACEMENT
--- NOTE | 2021-11-02 19:20 | NUR ---
DISCHARGED TO ACUTE REHAB UNIT STABLE, DAUGHTER AWARE. REPORT GIVEN TO ARU STAFF
[2021-11-02] MEDS ORDERED: DILT120C87 PO (20:27)
[2021-11-02] MEDS ORDERED: ALBU2.5V38 IH (20:27)
[2021-11-02] MEDS ORDERED: ZOLP5TAB8 PO (20:27)
[2021-11-02] MEDS ORDERED: ACET-73 PO (20:27)
[2021-11-02] MEDS ORDERED: ONDA4VIA23 IJ (20:27)
[2021-11-02] MEDS ORDERED: ACET-2154 PO (20:27)
[2021-11-02] MEDS ORDERED: NUT.237L36 PO (20:27)
[2021-11-02] MEDS ORDERED: QUET25TA PO (20:27)
[2021-11-02] MEDS ORDERED: MAGN400O6 PO (20:27)
== END 2021-11-02 19:20 | DRG 177 ==
LOC: ER 16:32 → TELE3 22:40 → TELE-TD3 10-23 23:00 → TELE3 10-25 16:45 → MEDSURG3 11-01 10:10
PROVIDERS: ADMIT Internal Medicine; ATTEND Internal Medicine
PROC: 05H533Z Insertion of Infusion Device into Right Subclavian Vein, Percutaneous Approach (ICD-10-PCS; principal; 2021-10-26)
PROC: B546ZZA Ultrasonography of Right Subclavian Vein, Guidance (ICD-10-PCS; 2021-10-26)
DX: J69.0 Pneumonitis due to inhalation of food and vomit (principal); J96.01 Acute respiratory failure with hypoxia; I48.20 Chronic atrial fibrillation, unspecified; I47.2 Ventricular tachycardia; I13.0 Hypertensive heart and chronic kidney disease with heart failure and stage 1 through stage 4 chronic kidney disease, or unspecified chronic kidney disease; N39.0 Urinary tract infection, site not specified; Z66 Do not resuscitate; D50.9 Iron deficiency anemia, unspecified; E78.5 Hyperlipidemia, unspecified; I25.10 Atherosclerotic heart disease of native coronary artery without angina pectoris; Z20.822 Contact with and (suspected) exposure to COVID-19; Z79.01 Long term (current) use of anticoagulants; Z79.84 Long term (current) use of oral hypoglycemic drugs; Z86.73 Personal history of transient ischemic attack (TIA), and cerebral infarction without residual deficits; Z87.01 Personal history of pneumonia (recurrent); Z87.891 Personal history of nicotine dependence; I25.5 Ischemic cardiomyopathy; Z22.322 Carrier or suspected carrier of Methicillin resistant Staphylococcus aureus; R53.1 Weakness; W19.XXXA Unspecified fall, initial encounter; Y93.9 Activity, unspecified; Y92.89 Other specified places as the place of occurrence of the external cause; I50.9 Heart failure, unspecified; I27.20 Pulmonary hypertension, unspecified; I34.0 Nonrheumatic mitral (valve) insufficiency; E11.22 Type 2 diabetes mellitus with diabetic chronic kidney disease; D72.829 Elevated white blood cell count, unspecified
CPT/HCPCS: 36415; 36600; 70450; 71045; 71275; 72125; 83735; 84100; 84443; 84484; 85025; 85730; 86140; 87040; 93005; 93307; 94640; 97161; A4663; A9150; G0378; J0456; J0696; J1815; J1940; J2060; J3490; J7040; J7050; Q9967

== ENCOUNTER 2021-11-02 19:45 | Inpatient (IN) | payer MEDICARE, BC ==
[~2021-11-02] VITALS: Ht 167.6 cm; Wt 99.8 kg
[~2021-11-02 19:45] MED LIST changes: -AMOX1TAB16 PO
[2021-11-02 20:00] VITALS: BP 108/69
[2021-11-02] MEDS ORDERED: ZOLP5TAB8 PO (20:27)
[2021-11-02] MEDS ORDERED: QUET25TA PO (20:27)
[2021-11-02] MEDS ORDERED: MAGN400O6 PO (20:27)
[2021-11-02] MEDS ORDERED: DILT120C87 PO (20:27)
[2021-11-02] MEDS ORDERED: ACET-73 PO (20:27)
[2021-11-02] MEDS ORDERED: ALBU2.5V38 IH (20:27)
[2021-11-02] MEDS ORDERED: ONDA4VIA23 IJ (20:27)
[2021-11-02] MEDS ORDERED: NUT.237L36 PO (20:27)
[2021-11-02] MEDS ORDERED: ACET-2154 PO (20:27)
[2021-11-02] MEDS ORDERED: DEXTROSE 50% 50 ML DISP.SYRIN IV PRN (20:30)
[2021-11-02] MEDS ORDERED: ONDANSETRON 4 MG/2 ML VIAL IV PRN (20:45)
[2021-11-02] MEDS ORDERED: FLEET ENEMA 133 ML BOTTLE RC PRN (20:45)
[2021-11-02] MEDS ORDERED: ALBUTEROL SULFATE 2.5 MG/3 ML NEBU NEB PRN (20:45)
[2021-11-02] MEDS ORDERED: MAGNESIUM HYDROXIDE 30 ML LIQUID UDC PO PRN (20:45)
[2021-11-02] MEDS: ATORVASTATIN 20 MG TABLET PO SCH (21:28)
[2021-11-02] MEDS: ZOLPIDEM 5 MG TABLET PO PRN (21:28)
[2021-11-02] MEDS: REMEDY ESSENTIAL ZINC PASTE 113 GM TOP SCH (21:34)
[2021-11-02] MEDS: BLOOD SUGAR DIAGNOSTIC 1 EACH STRIP VI SCH (21:34)
[2021-11-03] MEDS: QUETIAPINE FUMARATE 25 MG TABLET PO PRN (00:56)
[2021-11-03 04:00] VITALS: BP 111/62
[2021-11-03] MEDS: BLOOD SUGAR DIAGNOSTIC 1 EACH STRIP VI SCH ×4 (05:46→20:34)
[2021-11-03 08:06] VITALS: BP 115/73
[2021-11-03] MEDS: METFORMIN HCL 500 MG TABLET PO SCH ×2 (08:06→17:38)
[2021-11-03] MEDS: glipiZIDE 10 MG TABLET PO SCH ×2 (08:06→17:38)
[2021-11-03] MEDS: QUETIAPINE FUMARATE 25 MG TABLET PO SCH ×2 (08:44→17:37)
[2021-11-03] MEDS: REMEDY ESSENTIAL ZINC PASTE 113 GM TOP SCH ×2 (08:44→20:19)
[2021-11-03] MEDS: LINAGLIPTIN 5 MG TABLET PO SCH (08:44)
[2021-11-03] MEDS: DIGOXIN 125 MCG TABLET PO SCH (08:45)
[2021-11-03] MEDS: DILTIAZEM HCL CD 120 MG CAP.SR.24H PO SCH (08:45)
[2021-11-03] MEDS: APIXABAN 5 MG TABLET PO SCH ×2 (08:46→17:40)
[2021-11-03] MEDS: GLUCERNA SHAKE 237 ML CAN PO SCH ×3 (08:46→17:37)
[2021-11-03] MEDS: INSULIN REGULAR, HUMAN 300 UNIT/3 ML VIAL SQ PRN ×2 (11:54→20:35)
[2021-11-03 12:00] VITALS: BP 114/57
[2021-11-03 16:00] VITALS: BP 107/52
[2021-11-03 20:00] VITALS: BP 141/69
[2021-11-03] MEDS: ATORVASTATIN 20 MG TABLET PO SCH (20:19)
[2021-11-03] MEDS: ZOLPIDEM 5 MG TABLET PO PRN (20:19)
[2021-11-04] MEDS: QUETIAPINE FUMARATE 25 MG TABLET PO PRN (03:02)
[2021-11-04 04:00] VITALS: BP 135/62
[2021-11-04] MEDS: BLOOD SUGAR DIAGNOSTIC 1 EACH STRIP VI SCH ×4 (05:31→20:54)
[2021-11-04] MEDS: BISACODYL 10 MG SUPP.RECT RC PRN (05:31)
[2021-11-04 08:14] VITALS: BP 125/71
[2021-11-04] MEDS: glipiZIDE 10 MG TABLET PO SCH ×2 (08:51→17:10)
[2021-11-04] MEDS: METFORMIN HCL 500 MG TABLET PO SCH ×2 (08:51→17:10)
[2021-11-04] MEDS: DIGOXIN 125 MCG TABLET PO SCH (08:51)
[2021-11-04] MEDS: QUETIAPINE FUMARATE 25 MG TABLET PO SCH ×2 (08:52→17:11)
[2021-11-04] MEDS: LINAGLIPTIN 5 MG TABLET PO SCH (08:52)
[2021-11-04] MEDS: DILTIAZEM HCL CD 120 MG CAP.SR.24H PO SCH (08:52)
[2021-11-04] MEDS: GLUCERNA SHAKE 237 ML CAN PO SCH ×3 (08:53→17:12)
[2021-11-04] MEDS: APIXABAN 5 MG TABLET PO SCH ×2 (08:53→17:11)
[2021-11-04] MEDS: REMEDY ESSENTIAL ZINC PASTE 113 GM TOP SCH ×2 (08:54→21:01)
[2021-11-04 11:55] VITALS: BP 138/76
[2021-11-04] MEDS: INSULIN REGULAR, HUMAN 300 UNIT/3 ML VIAL SQ PRN (12:48)
[2021-11-04 16:00] VITALS: BP 128/72
[2021-11-04 20:28] VITALS: BP 130/67
[2021-11-04] MEDS: ATORVASTATIN 20 MG TABLET PO SCH (20:48)
[2021-11-05] MEDS: ZOLPIDEM 5 MG TABLET PO PRN ×2 (02:08→20:21)
[2021-11-05] MEDS: BLOOD SUGAR DIAGNOSTIC 1 EACH STRIP VI SCH ×4 (06:37→20:28)
[2021-11-05 08:03] VITALS: BP 139/76
[2021-11-05] MEDS: LINAGLIPTIN 5 MG TABLET PO SCH (08:08)
[2021-11-05] MEDS: METFORMIN HCL 500 MG TABLET PO SCH ×2 (08:09→17:02)
[2021-11-05] MEDS: glipiZIDE 10 MG TABLET PO SCH ×2 (08:09→17:02)
[2021-11-05] MEDS: QUETIAPINE FUMARATE 25 MG TABLET PO SCH ×2 (08:10→16:36)
[2021-11-05] MEDS: DIGOXIN 125 MCG TABLET PO SCH (08:10)
[2021-11-05] MEDS: DILTIAZEM HCL CD 120 MG CAP.SR.24H PO SCH (08:10)
[2021-11-05] MEDS: REMEDY ESSENTIAL ZINC PASTE 113 GM TOP SCH ×2 (08:11→20:21)
[2021-11-05] MEDS: APIXABAN 5 MG TABLET PO SCH ×2 (08:12→16:30)
[2021-11-05] MEDS: GLUCERNA SHAKE 237 ML CAN PO SCH ×3 (08:12→16:31)
[2021-11-05] MEDS: BISACODYL 10 MG SUPP.RECT RC PRN (08:13)
[2021-11-05] MEDS: MIRALAX 17 GM POWD.PACK PO SCH (11:24)
[2021-11-05] MEDS: INSULIN REGULAR, HUMAN 300 UNIT/3 ML VIAL SQ PRN ×2 (11:38→16:30)
[2021-11-05 16:42] VITALS: BP 122/77
[2021-11-05] MEDS: ATORVASTATIN 20 MG TABLET PO SCH (20:21)
[2021-11-05] MEDS: ACETAMINOPHEN 325 MG TABLET PO PRN (20:21)
[2021-11-05 20:42] VITALS: BP 122/70
[2021-11-06] MEDS: QUETIAPINE FUMARATE 25 MG TABLET PO PRN ×2 (00:22→22:15)
[2021-11-06 04:46] VITALS: BP 116/74
[2021-11-06] MEDS: BLOOD SUGAR DIAGNOSTIC 1 EACH STRIP VI SCH ×4 (06:39→20:04)
[2021-11-06 06:43] LABS: HEMATOCRIT 34.1 % (36.7-47.1); MEAN CORPUSCULAR HEMOGLOBIN 20.4 uug (23.8-33.4); MEAN CORPUSCULAR VOLUME 64.8 fL (73.0-96.2); PLATELET COUNT (AUTO) 243 K/uL (152-348)
[2021-11-06 08:00] VITALS: BP 135/67
[2021-11-06 08:07] LABS: PHOSPHOROUS 4.6 mg/dL (2.5-4.9); POTASSIUM 4.2 mmol/L (3.5-5.1)
[2021-11-06] MEDS: QUETIAPINE FUMARATE 25 MG TABLET PO SCH ×2 (08:36→16:07)
[2021-11-06] MEDS: LINAGLIPTIN 5 MG TABLET PO SCH (08:37)
[2021-11-06] MEDS: DILTIAZEM HCL CD 120 MG CAP.SR.24H PO SCH (08:37)
[2021-11-06] MEDS: glipiZIDE 10 MG TABLET PO SCH ×2 (08:37→17:45)
[2021-11-06] MEDS: METFORMIN HCL 500 MG TABLET PO SCH ×2 (08:37→17:45)
[2021-11-06] MEDS: DIGOXIN 125 MCG TABLET PO SCH (08:37)
[2021-11-06] MEDS: GLUCERNA SHAKE 237 ML CAN PO SCH ×3 (08:38→16:07)
[2021-11-06] MEDS: MIRALAX 17 GM POWD.PACK PO SCH (08:38)
[2021-11-06] MEDS: REMEDY ESSENTIAL ZINC PASTE 113 GM TOP SCH ×2 (08:38→20:04)
[2021-11-06] MEDS: APIXABAN 5 MG TABLET PO SCH ×2 (08:40→16:06)
[2021-11-06] MEDS: INSULIN REGULAR, HUMAN 300 UNIT/3 ML VIAL SQ PRN (12:21)
[2021-11-06 15:22] VITALS: BP 113/71
[2021-11-06] MEDS: ZOLPIDEM 5 MG TABLET PO PRN (20:03)
[2021-11-06] MEDS: ATORVASTATIN 20 MG TABLET PO SCH (20:03)
[2021-11-06] MEDS: ACETAMINOPHEN 325 MG TABLET PO PRN (20:04)
[2021-11-06 20:09] VITALS: BP 124/65
[2021-11-07 04:10] VITALS: BP 129/61
[2021-11-07] MEDS: BLOOD SUGAR DIAGNOSTIC 1 EACH STRIP VI SCH ×4 (06:41→21:07)
[2021-11-07 08:00] VITALS: BP 114/64
[2021-11-07] MEDS: METFORMIN HCL 500 MG TABLET PO SCH ×2 (08:23→17:10)
[2021-11-07] MEDS: glipiZIDE 10 MG TABLET PO SCH ×2 (08:23→17:09)
[2021-11-07] MEDS: DILTIAZEM HCL CD 120 MG CAP.SR.24H PO SCH (08:26)
[2021-11-07] MEDS: QUETIAPINE FUMARATE 25 MG TABLET PO SCH ×2 (08:26→17:10)
[2021-11-07] MEDS: LINAGLIPTIN 5 MG TABLET PO SCH (08:27)
[2021-11-07] MEDS: REMEDY ESSENTIAL ZINC PASTE 113 GM TOP SCH ×2 (08:27→21:03)
[2021-11-07] MEDS: DIGOXIN 125 MCG TABLET PO SCH (08:28)
[2021-11-07] MEDS: MIRALAX 17 GM POWD.PACK PO SCH (08:33)
[2021-11-07] MEDS: GLUCERNA SHAKE 237 ML CAN PO SCH ×3 (08:33→17:12)
[2021-11-07] MEDS: APIXABAN 5 MG TABLET PO SCH ×2 (09:00→17:11)
[2021-11-07 16:00] VITALS: BP 123/80
[2021-11-07 20:32] VITALS: BP 120/85
[2021-11-07] MEDS: ZOLPIDEM 5 MG TABLET PO PRN (21:02)
[2021-11-07] MEDS: ATORVASTATIN 20 MG TABLET PO SCH (21:02)
[2021-11-08] MEDS: QUETIAPINE FUMARATE 25 MG TABLET PO PRN (02:13)
[2021-11-08] MEDS: ACETAMINOPHEN 325 MG TABLET PO PRN (02:14)
[2021-11-08 04:33] VITALS: BP 115/63
[2021-11-08] MEDS: BLOOD SUGAR DIAGNOSTIC 1 EACH STRIP VI SCH ×4 (05:59→20:44)
[2021-11-08 08:00] VITALS: BP 134/76
[2021-11-08] MEDS: QUETIAPINE FUMARATE 25 MG TABLET PO SCH ×2 (08:42→16:52)
[2021-11-08] MEDS: LINAGLIPTIN 5 MG TABLET PO SCH (08:42)
[2021-11-08] MEDS: MIRALAX 17 GM POWD.PACK PO SCH (08:42)
[2021-11-08] MEDS: glipiZIDE 10 MG TABLET PO SCH ×2 (08:42→17:02)
[2021-11-08] MEDS: DILTIAZEM HCL CD 120 MG CAP.SR.24H PO SCH (08:42)
[2021-11-08] MEDS: METFORMIN HCL 500 MG TABLET PO SCH ×2 (08:42→17:02)
[2021-11-08] MEDS: DIGOXIN 125 MCG TABLET PO SCH (08:42)
[2021-11-08] MEDS: APIXABAN 5 MG TABLET PO SCH ×2 (08:43→16:53)
[2021-11-08] MEDS: GLUCERNA SHAKE 237 ML CAN PO SCH ×3 (08:44→16:53)
[2021-11-08] MEDS: REMEDY ESSENTIAL ZINC PASTE 113 GM TOP SCH ×2 (08:44→20:43)
[2021-11-08 16:00] VITALS: BP 116/64
[2021-11-08 20:00] VITALS: BP 124/70
[2021-11-08] MEDS: ATORVASTATIN 20 MG TABLET PO SCH (20:38)
[2021-11-08] MEDS: ZOLPIDEM 5 MG TABLET PO PRN (20:38)
[2021-11-09 04:17] VITALS: BP 146/80
[2021-11-09] MEDS: BLOOD SUGAR DIAGNOSTIC 1 EACH STRIP VI SCH ×4 (06:31→20:22)
[2021-11-09] MEDS: METFORMIN HCL 500 MG TABLET PO SCH ×2 (08:32→17:11)
[2021-11-09] MEDS: DIGOXIN 125 MCG TABLET PO SCH (08:32)
[2021-11-09] MEDS: QUETIAPINE FUMARATE 25 MG TABLET PO SCH ×3 (08:32→17:11)
[2021-11-09] MEDS: glipiZIDE 10 MG TABLET PO SCH ×2 (08:32→17:11)
[2021-11-09] MEDS: LINAGLIPTIN 5 MG TABLET PO SCH (08:33)
[2021-11-09] MEDS: DILTIAZEM HCL CD 120 MG CAP.SR.24H PO SCH (08:33)
[2021-11-09] MEDS: GLUCERNA SHAKE 237 ML CAN PO SCH ×3 (08:33→17:00)
[2021-11-09] MEDS: MIRALAX 17 GM POWD.PACK PO SCH (08:34)
[2021-11-09] MEDS: REMEDY ESSENTIAL ZINC PASTE 113 GM TOP SCH ×2 (08:34→20:22)
[2021-11-09] MEDS: APIXABAN 5 MG TABLET PO SCH ×2 (08:35→17:10)
[2021-11-09] MEDS: INSULIN REGULAR, HUMAN 300 UNIT/3 ML VIAL SQ PRN (11:09)
[2021-11-09 20:00] VITALS: BP 105/59
[2021-11-09] MEDS: ATORVASTATIN 20 MG TABLET PO SCH (20:42)
[2021-11-10 04:00] VITALS: BP 103/57
[2021-11-10 07:30] VITALS: BP 105/51
[2021-11-10] MEDS: BLOOD SUGAR DIAGNOSTIC 1 EACH STRIP VI SCH ×4 (07:45→21:37)
[2021-11-10] MEDS: METFORMIN HCL 500 MG TABLET PO SCH ×2 (07:55→17:24)
[2021-11-10] MEDS: glipiZIDE 10 MG TABLET PO SCH ×2 (07:55→17:24)
[2021-11-10 08:30] LABS: *BILIRUBIN,URIN NEGATIVE (NEGATIVE); *CLARITY,URINE CLEAR (CLEAR); *COLOR,URINE YELLOW (YELLOW); *KETONES,URINE NEGATIVE (NEGATIVE); *UROBILINOGEN,URINE >=8.0 E.U./dl (NORMAL); LEUKOCYTE ESTERASE ,URINE NEGATIVE (NEGATIVE); NITRITE, URINE NEGATIVE (NEGATIVE); PH,URINE 6.5 (5.0-8.0); UGLUCOSE NEGATIVE (NEGATIVE)
[2021-11-10 08:31] LABS: *BLOOD, URINE TRACE (NEGATIVE)
[2021-11-10] MEDS: APIXABAN 5 MG TABLET PO SCH ×2 (08:31→17:26)
[2021-11-10] MEDS: QUETIAPINE FUMARATE 25 MG TABLET PO SCH ×2 (08:31→17:24)
[2021-11-10] MEDS: REMEDY ESSENTIAL ZINC PASTE 113 GM TOP SCH ×2 (08:33→20:25)
[2021-11-10] MEDS: LINAGLIPTIN 5 MG TABLET PO SCH (08:33)
[2021-11-10] MEDS: MIRALAX 17 GM POWD.PACK PO SCH (08:33)
[2021-11-10] MEDS: DIGOXIN 125 MCG TABLET PO SCH (08:34)
[2021-11-10] MEDS: DILTIAZEM HCL CD 120 MG CAP.SR.24H PO SCH (08:35)
[2021-11-10] MEDS: GLUCERNA SHAKE 237 ML CAN PO SCH ×3 (08:41→17:25)
[2021-11-10] MEDS: INSULIN REGULAR, HUMAN 300 UNIT/3 ML VIAL SQ PRN ×3 (11:40→21:41)
[2021-11-10 12:00] LABS: BACTERIA,URINE FEW /HPF (NONE SEEN); WBC,URINE NONE SEEN /HPF (0-3)
[2021-11-10 12:01] LABS: SQUAMOUS EPITHELIAL CELL,UR FEW /HPF (NONE SEEN)
[2021-11-10 15:39] VITALS: BP 124/82
[2021-11-10 20:00] VITALS: BP 123/78
[2021-11-10] MEDS: ATORVASTATIN 20 MG TABLET PO SCH (20:18)
[2021-11-10] MEDS: QUETIAPINE FUMARATE 25 MG TABLET PO PRN (20:19)
[2021-11-11] MEDS: BLOOD SUGAR DIAGNOSTIC 1 EACH STRIP VI SCH ×4 (06:47→20:35)
[2021-11-11 08:06] VITALS: BP 126/82
[2021-11-11] MEDS: METFORMIN HCL 500 MG TABLET PO SCH ×2 (08:34→17:39)
[2021-11-11] MEDS: glipiZIDE 10 MG TABLET PO SCH ×2 (08:34→17:39)
[2021-11-11] MEDS: LINAGLIPTIN 5 MG TABLET PO SCH (08:53)
[2021-11-11] MEDS: DILTIAZEM HCL CD 120 MG CAP.SR.24H PO SCH (08:53)
[2021-11-11] MEDS: REMEDY ESSENTIAL ZINC PASTE 113 GM TOP SCH ×2 (08:54→20:31)
[2021-11-11] MEDS: QUETIAPINE FUMARATE 25 MG TABLET PO SCH ×2 (08:54→17:39)
[2021-11-11] MEDS: DIGOXIN 125 MCG TABLET PO SCH (08:54)
[2021-11-11] MEDS: MIRALAX 17 GM POWD.PACK PO SCH (08:54)
[2021-11-11] MEDS: APIXABAN 5 MG TABLET PO SCH ×2 (08:56→17:40)
[2021-11-11] MEDS: GLUCERNA SHAKE 237 ML CAN PO SCH ×3 (09:05→17:44)
[2021-11-11 15:53] VITALS: BP 132/78
[2021-11-11] MEDS: ATORVASTATIN 20 MG TABLET PO SCH (20:30)
[2021-11-11] MEDS: ZOLPIDEM 5 MG TABLET PO PRN (20:37)
[2021-11-11] MEDS: INSULIN REGULAR, HUMAN 300 UNIT/3 ML VIAL SQ PRN (20:58)
[2021-11-11 21:06] VITALS: BP 109/66
[2021-11-12] MEDS: QUETIAPINE FUMARATE 25 MG TABLET PO PRN (02:39)
[2021-11-12 04:00] VITALS: BP 125/82
[2021-11-12] MEDS: BLOOD SUGAR DIAGNOSTIC 1 EACH STRIP VI SCH ×4 (06:23→20:16)
[2021-11-12 08:06] VITALS: BP 111/79
[2021-11-12] MEDS: QUETIAPINE FUMARATE 25 MG TABLET PO SCH ×2 (09:47→17:02)
[2021-11-12] MEDS: LINAGLIPTIN 5 MG TABLET PO SCH (09:47)
[2021-11-12] MEDS: DIGOXIN 125 MCG TABLET PO SCH (09:48)
[2021-11-12] MEDS: APIXABAN 5 MG TABLET PO SCH ×2 (09:48→17:02)
[2021-11-12] MEDS: DILTIAZEM HCL CD 120 MG CAP.SR.24H PO SCH (09:48)
[2021-11-12] MEDS: METFORMIN HCL 500 MG TABLET PO SCH ×2 (09:48→17:02)
[2021-11-12] MEDS: glipiZIDE 10 MG TABLET PO SCH ×2 (09:48→17:02)
[2021-11-12] MEDS: REMEDY ESSENTIAL ZINC PASTE 113 GM TOP SCH ×2 (09:50→20:13)
[2021-11-12] MEDS: MIRALAX 17 GM POWD.PACK PO SCH (09:50)
[2021-11-12] MEDS: GLUCERNA SHAKE 237 ML CAN PO SCH ×2 (09:50→13:30)
[2021-11-12 15:13] VITALS: BP 106/73
[2021-11-12 20:00] VITALS: BP 107/81
[2021-11-12] MEDS: ATORVASTATIN 20 MG TABLET PO SCH (20:13)
[2021-11-12] MEDS: INSULIN REGULAR, HUMAN 300 UNIT/3 ML VIAL SQ PRN (20:17)
[2021-11-12] MEDS: ZOLPIDEM 5 MG TABLET PO PRN (20:18)
[2021-11-13 04:00] VITALS: BP 124/78
[2021-11-13] MEDS: BLOOD SUGAR DIAGNOSTIC 1 EACH STRIP VI SCH ×4 (06:08→21:38)
[2021-11-13 07:36] VITALS: BP 123/68
[2021-11-13] MEDS: METFORMIN HCL 500 MG TABLET PO SCH ×2 (08:40→16:47)
[2021-11-13] MEDS: LINAGLIPTIN 5 MG TABLET PO SCH (08:40)
[2021-11-13] MEDS: glipiZIDE 10 MG TABLET PO SCH ×2 (08:40→16:47)
[2021-11-13] MEDS: DILTIAZEM HCL CD 120 MG CAP.SR.24H PO SCH (08:41)
[2021-11-13] MEDS: DIGOXIN 125 MCG TABLET PO SCH (08:41)
[2021-11-13] MEDS: APIXABAN 5 MG TABLET PO SCH ×2 (08:41→16:48)
[2021-11-13] MEDS: QUETIAPINE FUMARATE 25 MG TABLET PO SCH ×2 (08:42→16:47)
[2021-11-13] MEDS: REMEDY ESSENTIAL ZINC PASTE 113 GM TOP SCH ×2 (08:42→21:39)
[2021-11-13] MEDS: GLUCERNA SHAKE 237 ML CAN PO SCH (08:42)
[2021-11-13] MEDS: MIRALAX 17 GM POWD.PACK PO SCH (08:42)
[2021-11-13 15:13] VITALS: BP 107/58
[2021-11-13 20:25] VITALS: BP 108/69
[2021-11-13] MEDS: ATORVASTATIN 20 MG TABLET PO SCH (21:28)
[2021-11-13] MEDS: ZOLPIDEM 5 MG TABLET PO PRN (21:31)
[2021-11-14 04:43] VITALS: BP 109/61
[2021-11-14] MEDS: BLOOD SUGAR DIAGNOSTIC 1 EACH STRIP VI SCH ×4 (06:33→20:58)
[2021-11-14 09:44] VITALS: BP 133/77
[2021-11-14] MEDS: MIRALAX 17 GM POWD.PACK PO SCH (09:52)
[2021-11-14] MEDS: DIGOXIN 125 MCG TABLET PO SCH (09:53)
[2021-11-14] MEDS: LINAGLIPTIN 5 MG TABLET PO SCH (09:53)
[2021-11-14] MEDS: QUETIAPINE FUMARATE 25 MG TABLET PO SCH ×2 (09:53→17:35)
[2021-11-14] MEDS: DILTIAZEM HCL CD 120 MG CAP.SR.24H PO SCH (09:54)
[2021-11-14] MEDS: METFORMIN HCL 500 MG TABLET PO SCH ×2 (09:57→17:40)
[2021-11-14] MEDS: glipiZIDE 10 MG TABLET PO SCH ×2 (09:58→17:40)
[2021-11-14] MEDS: APIXABAN 5 MG TABLET PO SCH ×2 (09:59→17:41)
[2021-11-14] MEDS: GLUCERNA SHAKE 237 ML CAN PO SCH (10:00)
[2021-11-14] MEDS: REMEDY ESSENTIAL ZINC PASTE 113 GM TOP SCH ×2 (10:01→20:58)
[2021-11-14 18:14] VITALS: BP 120/63
[2021-11-14] MEDS: ZOLPIDEM 5 MG TABLET PO PRN (20:57)
[2021-11-14] MEDS: ATORVASTATIN 20 MG TABLET PO SCH (20:57)
[2021-11-14] MEDS: ACETAMINOPHEN 325 MG TABLET PO PRN (20:57)
[2021-11-14] MEDS: INSULIN REGULAR, HUMAN 300 UNIT/3 ML VIAL SQ PRN (20:59)
[2021-11-14 21:02] VITALS: BP 122/77
[2021-11-15 05:01] VITALS: BP 133/67
[2021-11-15] MEDS: BLOOD SUGAR DIAGNOSTIC 1 EACH STRIP VI SCH ×4 (06:38→20:46)
[2021-11-15 08:00] VITALS: BP 117/72
[2021-11-15] MEDS: glipiZIDE 10 MG TABLET PO SCH ×2 (08:38→17:24)
[2021-11-15] MEDS: METFORMIN HCL 500 MG TABLET PO SCH ×2 (08:38→17:24)
[2021-11-15] MEDS: LINAGLIPTIN 5 MG TABLET PO SCH (08:38)
[2021-11-15] MEDS: DIGOXIN 125 MCG TABLET PO SCH (08:39)
[2021-11-15] MEDS: APIXABAN 5 MG TABLET PO SCH ×2 (08:39→16:46)
[2021-11-15] MEDS: MIRALAX 17 GM POWD.PACK PO SCH (08:39)
[2021-11-15] MEDS: QUETIAPINE FUMARATE 25 MG TABLET PO SCH ×2 (08:39→16:46)
[2021-11-15] MEDS: DILTIAZEM HCL CD 120 MG CAP.SR.24H PO SCH (08:40)
[2021-11-15] MEDS: GLUCERNA SHAKE 237 ML CAN PO SCH (08:40)
[2021-11-15] MEDS: REMEDY ESSENTIAL ZINC PASTE 113 GM TOP SCH ×2 (08:40→21:42)
[2021-11-15 15:45] VITALS: BP 104/66
[2021-11-15 20:00] VITALS: BP 110/62
[2021-11-15] MEDS: INSULIN REGULAR, HUMAN 300 UNIT/3 ML VIAL SQ PRN (20:51)
[2021-11-15] MEDS: ATORVASTATIN 20 MG TABLET PO SCH (21:41)
[2021-11-16] MEDS: ZOLPIDEM 5 MG TABLET PO PRN ×2 (02:17→20:32)
[2021-11-16 04:00] VITALS: BP 112/65
[2021-11-16] MEDS: BLOOD SUGAR DIAGNOSTIC 1 EACH STRIP VI SCH ×4 (06:08→21:04)
[2021-11-16 08:00] VITALS: BP 117/67
[2021-11-16] MEDS: DILTIAZEM HCL CD 120 MG CAP.SR.24H PO SCH (09:56)
[2021-11-16] MEDS: QUETIAPINE FUMARATE 25 MG TABLET PO SCH ×2 (09:57→17:19)
[2021-11-16] MEDS: DIGOXIN 125 MCG TABLET PO SCH (09:57)
[2021-11-16] MEDS: APIXABAN 5 MG TABLET PO SCH ×2 (09:57→17:19)
[2021-11-16] MEDS: LINAGLIPTIN 5 MG TABLET PO SCH (09:58)
[2021-11-16] MEDS: REMEDY ESSENTIAL ZINC PASTE 113 GM TOP SCH ×2 (09:59→20:32)
[2021-11-16] MEDS: GLUCERNA SHAKE 237 ML CAN PO SCH (10:00)
[2021-11-16] MEDS: glipiZIDE 10 MG TABLET PO SCH ×2 (10:02→17:19)
[2021-11-16] MEDS: METFORMIN HCL 500 MG TABLET PO SCH ×2 (10:02→17:19)
[2021-11-16] MEDS: MIRALAX 17 GM POWD.PACK PO SCH (10:04)
[2021-11-16 16:00] VITALS: BP 119/54
[2021-11-16] MEDS: INSULIN REGULAR, HUMAN 300 UNIT/3 ML VIAL SQ PRN ×2 (18:13→21:05)
[2021-11-16 20:00] VITALS: BP 113/55
[2021-11-16] MEDS: ATORVASTATIN 20 MG TABLET PO SCH (20:32)
[2021-11-17 04:00] VITALS: BP 110/62
[2021-11-17] MEDS: BLOOD SUGAR DIAGNOSTIC 1 EACH STRIP VI SCH ×4 (05:33→20:51)
[2021-11-17 07:30] VITALS: BP 125/79
[2021-11-17] MEDS: glipiZIDE 10 MG TABLET PO SCH ×2 (08:17→17:09)
[2021-11-17] MEDS: METFORMIN HCL 500 MG TABLET PO SCH ×2 (08:17→17:09)
[2021-11-17] MEDS: LINAGLIPTIN 5 MG TABLET PO SCH (09:10)
[2021-11-17] MEDS: DIGOXIN 125 MCG TABLET PO SCH (09:10)
[2021-11-17] MEDS: QUETIAPINE FUMARATE 25 MG TABLET PO SCH ×2 (09:11→17:09)
[2021-11-17] MEDS: MIRALAX 17 GM POWD.PACK PO SCH (09:11)
[2021-11-17] MEDS: DILTIAZEM HCL CD 120 MG CAP.SR.24H PO SCH (09:11)
[2021-11-17] MEDS: GLUCERNA SHAKE 237 ML CAN PO SCH (09:12)
[2021-11-17] MEDS: APIXABAN 5 MG TABLET PO SCH ×2 (09:12→17:11)
[2021-11-17] MEDS: REMEDY ESSENTIAL ZINC PASTE 113 GM TOP SCH ×2 (09:20→20:47)
[2021-11-17 16:00] VITALS: BP 109/82
[2021-11-17 20:00] VITALS: BP 113/67
[2021-11-17] MEDS: ATORVASTATIN 20 MG TABLET PO SCH (20:47)
[2021-11-18 05:00] VITALS: BP 104/50
[2021-11-18] MEDS: BLOOD SUGAR DIAGNOSTIC 1 EACH STRIP VI SCH ×3 (06:06→16:27)
[2021-11-18 07:43] VITALS: BP 110/69
[2021-11-18] MEDS: LINAGLIPTIN 5 MG TABLET PO SCH (08:39)
[2021-11-18] MEDS: METFORMIN HCL 500 MG TABLET PO SCH ×2 (08:39→17:05)
[2021-11-18] MEDS: APIXABAN 5 MG TABLET PO SCH ×2 (08:40→17:05)
[2021-11-18] MEDS: glipiZIDE 10 MG TABLET PO SCH ×2 (08:40→17:05)
[2021-11-18] MEDS: MIRALAX 17 GM POWD.PACK PO SCH (08:41)
[2021-11-18] MEDS: GLUCERNA SHAKE 237 ML CAN PO SCH (08:41)
[2021-11-18] MEDS: QUETIAPINE FUMARATE 25 MG TABLET PO SCH ×2 (08:41→17:05)
[2021-11-18] MEDS: DIGOXIN 125 MCG TABLET PO SCH (08:41)
[2021-11-18] MEDS: REMEDY ESSENTIAL ZINC PASTE 113 GM TOP SCH (08:42)
[2021-11-18] MEDS: DILTIAZEM HCL CD 120 MG CAP.SR.24H PO SCH (08:48)
[2021-11-18 15:42] VITALS: BP 103/61
== END 2021-11-18 19:05 | disposition home health service (06) | DRG 947 ==
PROVIDERS: ADMIT Physical Medicine & Rehabilitation Pain Medicine; ATTEND Physical Medicine & Rehabilitation Pain Medicine
DX: R53.1 Weakness (principal); J96.01 Acute respiratory failure with hypoxia; J69.0 Pneumonitis due to inhalation of food and vomit; I10 Essential (primary) hypertension; I48.91 Unspecified atrial fibrillation; Z86.73 Personal history of transient ischemic attack (TIA), and cerebral infarction without residual deficits; D50.9 Iron deficiency anemia, unspecified; E78.5 Hyperlipidemia, unspecified; I25.10 Atherosclerotic heart disease of native coronary artery without angina pectoris; I27.20 Pulmonary hypertension, unspecified; I34.0 Nonrheumatic mitral (valve) insufficiency; Z22.322 Carrier or suspected carrier of Methicillin resistant Staphylococcus aureus; Z87.01 Personal history of pneumonia (recurrent); Z87.440 Personal history of urinary (tract) infections; E66.9 Obesity, unspecified; E11.40 Type 2 diabetes mellitus with diabetic neuropathy, unspecified; R26.81 Unsteadiness on feet; Z88.6 Allergy status to analgesic agent
CPT/HCPCS: 36415; 71045; 74018; 83735; 84100; 85025; 87086; 97161; 97535-GO-CO; A4663; C1758; J1815; J3490